=== PATIENT | female | born 1935 | race African-American/Black ===

== ENCOUNTER 2017-01-06 22:18 | Inpatient (IN) | payer MEDICARE ==
[2017-01-07 00:36] LABS: ALT (SGPT) 12 U/L (8-55); AST (SGOT) 18 U/L (5-34); Alkaline Phosphatase 70 U/L (40-150); Anion Gap 15 mmol/L (10-20); BUN (Urea Nitrogen) 25 mg/dL (9.8-20.1); Bilirubin, Total 0.5 mg/dL (0.2-1.2); Calc. Creatinine Clearance 0 mL/min (70-130); Calcium 9.9 mg/dL (7.8-10.44); Carbon Dioxide 19 mmol/L (23-31); Chloride 111 mmol/L (98-107); Estimated GFR-MDRD 31; Globulin 3.9 g/dL (2.4-3.5); Protein, Total 7.9 g/dL (6.0-8.3)
[2017-01-07 00:38] LABS: Hematocrit 35.5 % (36.0-47.0); Mean Platelet Volume 7.6 fL (7.4-10.4); Red Blood Cell (RBC) Count 3.89 mill/uL (4.20-5.40); White Blood Cell (WBC) Count 10.4 thou/uL (4.8-10.8)
[2017-01-07 00:39] LABS: Bilirubin Negative (Negative); Blood, Urine Large (Negative); Glucose, Urine (Dipstick) Negative (Negative); Ketone, Urine Negative (Negative); Nitrite Negative (Negative); Protein, Urine (Dipstick) 100 mg/dL (Neg-Trace); Urobilinogen 0.2 mg/dL (0.2-1.0)
[2017-01-07 00:39] LABS: Band 2 % (5-11); Neutrophil 88 % (42-75); Nucleated RBC 1 % (0)
[2017-01-07 00:41] LABS: Bacteria/HPF 1+ HPF (None Seen); Hyaline Casts/LPF 4-6 HYALINE CAST LPF (0-3 Hyaline)
[2017-01-07 00:44] LABS: Yeast-All Forms None Seen HPF (None Seen)
[2017-01-07] MEDS ORDERED: Sodium Chloride 0.9% 1,000 ML IV SCH (01:03)
[2017-01-07] MEDS ORDERED: Ondansetron HCl/PF 4 MG/2 ML Vial IVP PRN (01:03)
[2017-01-07] MEDS ORDERED: Ondansetron ODT 4 MG TAB SL PRN (01:03)
[2017-01-07 02:24] VITALS: BMI 28.4
[2017-01-07 06:08] LABS: Prothrombin Time 13.6 SEC (12.0-14.7)
[2017-01-07 06:13] LABS: PTT 28.7 SEC (22.9-36.1)
[2017-01-07] MEDS: cloNIDine 0.3 MG TAB PO SCH ×2 (10:31→20:13)
[2017-01-07] MEDS: Amlodipine 10 MG TAB PO SCH (10:32)
[2017-01-07] MEDS: Sodium Chloride 0.9% 1,000 ML IV SCH ×2 (10:33→20:13)
--- NOTE | 2017-01-08 00:10 | CON ---
DATE OF CONSULTATION: 01/07/2017 CHIEF COMPLAINT: Blood in the stool. HISTORY OF PRESENT ILLNESS: Ms. Alfred is an 81-year-old woman who came to the emergency room last night after having multiple red bloody stools. She passed two small volume bowel movements with br own stool mixed with red blood last night prior to coming to the hospital. Since she has been in [facility], she has passed multiple episodes of small volume of dark red bloody stools, mostly on [facility] toilet tissue and some passing into the toilet. She has had no abdominal pain with this. No naus ea, vomiting, diarrhea, constipation. She has had no weight loss. She has been taking aspirin two tablets 325 mg each daily most days recently. She has had no chest pain or shortness of breath. PAST MEDICAL HISTORY: She had mild GI bleed in November 2015, at which point she underwent colonos copy that identified diverticulosis and radiation proctitis. The bleeding was mild and could have o ccurred from either of these two sites. She also has hypertension and hyperlipidemia, past history of cervical cancer treated with chemotherapy and radiation. PAST SURGICAL HISTORY: Right ureteral stent placement and colonoscopy last year. FAMILY HISTORY: Negative for GI malignancy. SOCIAL HISTORY: No alcohol, tobacco or drugs. ALLERGIES: No known drug allergies. MEDICATIONS: As an outpatient, clonidine, amlodipine, and she has been taking aspirin 325 mg 2 tabl ets most days. REVIEW OF SYSTEMS: Negative x10 systems reviewed except as stated in the history of present illness . PHYSICAL EXAMINATION: VITAL SIGNS: Temperature 99.2, pulse 78, blood pressure 153/82. GENERAL: She is in no acute distress. She is awake and alert. HEENT: Her eyes have no scleral icterus. Oropharynx is clear, without lesions. NECK: No cervical or supraclavicular lymphadenopathy. LUNGS: Clear to auscultation bilaterally. HEART: Regular rate and rhythm without murmur. ABDOMEN: Soft, nontender, nondistended. Bowel sounds are present. EXTREMITIES: No lower extremity edema. RECTAL: Reveals dark red blood in the rectal vault. LABORATORY DATA: Her hemoglobin is 11.9 at midnight last night. INR 1.0. Creatinine 1.9, bilirubi n 0.5, AST 18, ALT 12, alkaline phosphatase 70, albumin 4.0. IMPRESSION: 1. Gastrointestinal bleed with dark red blood from the rectum. This does not appear to be a large volume bleed; however, she has had multiple stools today. This is most likely due to the diverticul osis or radiation proctitis identified by colonoscopy last year. Colonoscopy will not change manage ment at this time. Primary intervention now is just to withhold aspirin and allow that to metaboliz e. She has been taking two tablets of the 325 mg aspirin most days. 2. Anemia of acute blood loss. Her hemoglobin was 11.9 at midnight last night. We will recheck ag ain in the morning. RECOMMENDATIONS: 1. If her hemoglobin has not dropped down significantly and she does not have worsening overt bleed ing tomorrow, then advance her diet. 2. Hold aspirin. If she needs to be restarted on aspirin in the future she could potentially start 81 mg once daily.
[2017-01-08 05:11] LABS: #Eosinphils 0.3 thou/uL (0.0-0.7); #Lymphocytes 2.1 thou/uL (1.20-3.40); #Monocytes 0.4 thou/uL (0.11-0.59); #Neutrophils 2.5 thou/uL (1.40-6.50); %Basophils 0.7 % (0.0-1.0); %Eosinophils 5.1 % (0.0-10.0); %Lymphocytes 39.4 % (21.0-51.0); %Monocytes 7.6 % (0.0-10.0); Hematocrit 30.6 % (36.0-47.0); Mean Platelet Volume 7.7 fL (7.4-10.4); Red Blood Cell (RBC) Count 3.34 mill/uL (4.20-5.40); White Blood Cell (WBC) Count 5.3 thou/uL (4.8-10.8)
[2017-01-08 05:19] LABS: Anion Gap 13 mmol/L (10-20); BUN (Urea Nitrogen) 18 mg/dL (9.8-20.1); Calc. Creatinine Clearance 33 mL/min (70-130); Calcium 8.8 mg/dL (7.8-10.44); Carbon Dioxide 17 mmol/L (23-31); Chloride 115 mmol/L (98-107); Estimated GFR-MDRD 39
--- NOTE | 2017-01-08 06:36 | HP ---
REASON FOR ADMISSION/CHIEF COMPLAINT: Acute rectal bleeding. HISTORY OF PRESENT ILLNESS: Ms. Jenise Alfred is an 81-year-old -[place] female with past m edical history of hypertension, anemia, radiation proctitis, and colon diverticulosis, who came with sudden onset of rectal bleeding that started yesterday. The patient blood from the rectum, s ometimes more, sometimes less, had few episodes. She states she has been doing well until yesterday when this started. She did not have any abdominal pain. No nausea or vomiting. No dizziness. Th e patient came to the emergency room because of this onset of GI bleeding. In the ER, the patient w as evaluated. She was hemodynamically stable on H\T\H and her hemoglobin was 11.5. She was started on fluids and admitted for further evaluation and management. PAST MEDICAL HISTORY: 1. Hypertension. 2. History of cervical cancer, status post chemo and radiation. 3. History of radiation proctitis. 4. History of colon diverticulosis. PAST SURGICAL HISTORY: Nothing significant. CURRENT MEDICATIONS: The patient is on amlodipine 10 mg daily and clonidine 0.3 b.i.d. FAMILY HISTORY: Nothing of interest. SOCIAL HISTORY: The patient lives alone. No history of smoking. No history of alcohol intake. REVIEW OF SYSTEMS: Cardiovascular: No chest pain. No shortness of breath. Respiratory: No fever or cough. Gastrointestinal: Has rectal bleeding. No abdominal pain. Genitourinary: No dysuria or hematuria. Central Nervous System: No headache, no dizziness. PHYSICAL EXAMINATION: GENERAL: The patient is alert, awake, oriented x3. VITAL SIGNS: Temperature 98, pulse 112, blood pressure 160/106, respirations 20. HEENT: Head is normocephalic, atraumatic. Pupils are equal and reactive to light. Nasopharynx is pale and dry. Hard and soft palate, no lesions seen. SKIN: Skin turgor decreased. NECK: Supple. No JVD. LUNGS: Bilateral air entry present, no rales, no rhonchi. CARDIAC: S1, S2 regular. ABDOMEN: Soft, no distention, no tenderness. Normal bowel sounds present. RECTAL: Done in the ER revealed blood in the rectum. No hemorrhoids. CENTRAL NERVOUS SYSTEM: No focal deficits. LABORATORY DATA: CBC shows WBC 10.5, hemoglobin 11.9, hematocrit 35, platelets 281. Metabolic pane l: Sodium 141, potassium 3.6, chloride 111, CO2 of 19, BUN 25, creatinine 1.90, glucose 110. Urina lysis revealed wbc's 7-10, bacteria 1+. PT 13 and INR 1. ASSESSMENT: 1. Acute rectal bleeding. 2. Anemia secondary to acute rectal bleeding. 3. Hypertension, uncontrolled. 4. History of radiation proctitis. 5. History of colon diverticulosis. 6. History of carcinoma of cervix, status post chemo and radiation. 7. Possible urinary tract infection. PLAN: 1. Vital signs q.4 hours. 2. Activity: As tolerated. 3. Allergies: No known drug allergies. 4. IV fluids: Normal saline at 70 mL per hour. 5. Diet: Clear liquids. 6. Continue home medications. 7. H\T\H and metabolic panel in the morning. 8. GI consult. 9. Levaquin 500 mg daily.
[2017-01-08] MEDS: Sodium Chloride 0.9% 1,000 ML IV SCH (08:49)
[2017-01-08] MEDS: Amlodipine 10 MG TAB PO SCH ×2 (09:27→17:56)
[2017-01-08] MEDS: cloNIDine 0.3 MG TAB PO SCH ×3 (09:27→21:27)
--- NOTE | 2017-01-08 13:09 | PRG ---
DATE OF SERVICE: 01/08/2017 SUBJECTIVE: She has had no further bloody stools today. She is tolerating liquid diet well. OBJECTIVE: VITAL SIGNS: Temperature 98.3, pulse 85, blood pressure 134/80. GENERAL: She is in no acute distress, awake and alert. LUNGS: Clear to auscultation bilaterally. HEART: Regular rate and rhythm. ABDOMEN: Soft, nontender, nondistended. Bowel sounds are present. EXTREMITIES: No lower extremity edema. LABORATORY DATA: Hemoglobin is 10.0 today down from 11.9 on presentation. IMPRESSION: Hematochezia. She has had no further bleeding today. Her hemoglobin is down slightly. She has a history of radiation proctitis and diverticulosis. She had started taking aspirin 325 m g tablets 2 tablets daily, which may have contributed to the bleeding. RECOMMENDATIONS: 1. Hold the aspirin. If she needs to be on it, she can be restarted on an 81 mg dose. 2. Advance to a regular diet. 3. Anticipate discharge home tomorrow. I will sign off for now. Please call if GI can be of assistance.
[2017-01-09 05:05] LABS: #Basophils 0.1 thou/uL (0.0-0.2); #Eosinphils 0.3 thou/uL (0.0-0.7); #Lymphocytes 1.7 thou/uL (1.20-3.40); #Monocytes 0.4 thou/uL (0.11-0.59); #Neutrophils 2.4 thou/uL (1.40-6.50); %Basophils 1.2 % (0.0-1.0); %Eosinophils 6.2 % (0.0-10.0); %Lymphocytes 35.2 % (21.0-51.0); %Monocytes 7.4 % (0.0-10.0); Hematocrit 29.1 % (36.0-47.0); Mean Platelet Volume 7.5 fL (7.4-10.4); White Blood Cell (WBC) Count 4.7 thou/uL (4.8-10.8)
[2017-01-09 05:24] LABS: Anion Gap 12 mmol/L (10-20); BUN (Urea Nitrogen) 14 mg/dL (9.8-20.1); Calc. Creatinine Clearance 32 mL/min (70-130); Calcium 8.8 mg/dL (7.8-10.44); Carbon Dioxide 19 mmol/L (23-31); Chloride 114 mmol/L (98-107); Estimated GFR-MDRD 37
[2017-01-09] MEDS: cloNIDine 0.3 MG TAB PO SCH ×2 (08:00→20:32)
[2017-01-09] MEDS: Amlodipine 10 MG TAB PO SCH ×2 (08:01→18:09)
[2017-01-09] MEDS: Potassium Chloride 20 MEQ TAB PO SCH ×2 (18:23→18:29)
[2017-01-10 09:03] LABS: Hematocrit 32.5 % (36.0-47.0)
[2017-01-10] MEDS: cloNIDine 0.3 MG TAB PO SCH (09:06)
[2017-01-10] MEDS: Amlodipine 10 MG TAB PO SCH (09:06)
[2017-01-10 12:19] VITALS: BP 125/79; TEMP 98.2
--- NOTE | 2017-01-11 06:17 | DIS ---
DATE OF ADMISSION: 01/07/2017 DATE OF DISCHARGE: 01/10/2017 ADMITTING DIAGNOSES: 1. Acute rectal bleeding. 2. Anemia secondary to acute rectal bleeding. 3. Hypertension, uncontrolled. 4. History of radiation proctitis. 5. History of colon diverticulosis. 6. History of cervical carcinoma, status post chemo and radiation. FINAL DIAGNOSES: 1. Acute rectal bleeding, resolved. 2. Anemia secondary to rectal bleeding, stable. 3. Hypertension, uncontrolled, improved. 4. History of radiation proctitis. 5. History of colon diverticulosis. BRIEF SUMMARY OF HOSPITAL COURSE: Ms. Alfred is an 81-year-old -[place] female, admitted b ecause of acute onset of rectal bleeding. The patient had one episode at the house and also in the hospital, but her H\T\H remained stable. A GI consult was done. The patient was seen by Dr. Liu, he felt to have gastrointestinal bleeding, possibly and due to diverticulosis of colon. No radiati on proctitis. Since her hemoglobin is stable, she did not have any overt bleeding. He suggested to monitor, so her H\T\H was rechecked and her diet was slowly advanced. She did not have any more ep isodes of GI bleeding. Her hemoglobin stayed around 10 grams. The patient did not have any pain, s he tolerated diet very well. Her blood pressure was uncontrolled, but after given all her medicatio ns, patient's blood pressure improved. In view of improvement, the patient was discharged. PHYSICAL EXAMINATION: GENERAL: At the time of discharge, she was stable. VITAL SIGNS: Her vital signs were stable. LUNGS: Clear. HEART: Sounds regular. ABDOMEN: Soft, nontender. Bowel sounds present. DISCHARGE MEDICATIONS: Include clonidine 0.3 b.i.d., amlodipine 10 mg daily, aspirin 81 mg daily. FOLLOWUP: The patient will come for followup in 2 weeks.
== END 2017-01-10 12:39 | disposition home or self-care (01) | DRG 378 ==
LOC: ERS 22:18 → T4-A 01-07 00:02
PROVIDERS: ADMIT Internal Medicine; ATTEND Internal Medicine
DX: K57.91 Diverticulosis of intestine, part unspecified, without perforation or abscess with bleeding (principal); D62 Acute posthemorrhagic anemia; I10 Essential (primary) hypertension; E78.5 Hyperlipidemia, unspecified; Z85.41 Personal history of malignant neoplasm of cervix uteri
CPT/HCPCS: 36415; 80048; 80053; 81003; 81015; 82274; 85025; 85610; 85730; 86850; 86900; 86901; 99284; A4216

== ENCOUNTER 2019-09-25 10:34 | Inpatient (IN) | payer MEDICARE ==
--- NOTE | 2019-09-25 11:46 | RAD ---
XR Foot Rt 2 View INDICATION: 84-year-old female with right foot infection COMPARISON: None. FINDINGS: Bones: The toes are held in hyperextension at the MTP joints on the dorsal plantar projection limitin g the evaluation. No destructive osteolytic is seen to suggest radiographic evidence of osteomyelitis. Joints: Joints spaces appear preserved. Lisfranc alignment: Lisfranc alignment appears within normal limits. Soft tissues: There is severe soft tissue swelling of the distal right foreleg, ankle and right foot without Radiopaque foreign body demonstrated . IMPRESSION: No acute osseous abnormality.
--- NOTE | 2019-09-25 11:48 | RAD ---
EXAM: Chest one view: HISTORY: Right foot infection history of kidney cancer COMPARISON: 11/27/2005 FINDINGS: Right subclavian catheter injection port. Lumbothoracic dextroscoliosis. Heart size: Borderline enlarged. Lungs: Clear of acute process. No evidence for confluent pneumonia, pleural effusion, acute edema, or pneumothorax, or other signifi cant acute process. IMPRESSION: No significant acute intrathoracic disease.
[2019-09-25] MEDS ORDERED: Sodium Chloride 0.9% 100 ML ONE (12:06)
[2019-09-25] MEDS ORDERED: Cefepime 2 GM VIAL ONE (12:06)
[2019-09-25 12:14] LABS: #Lymphocytes 0.9 thou/uL (1.20-3.40); #Monocytes 0.4 thou/uL (0.11-0.59); #Neutrophils 9.2 thou/uL (1.40-6.50); %Basophils 0.1 % (0.0-1.0); %Eosinophils 0.1 % (0.0-10.0); %Lymphocytes 8.2 % (21.0-51.0); %Monocytes 3.4 % (0.0-10.0); %Neutrophils 88.1 % (42.0-75.0); Hemoglobin 7.8 g/dL (12.0-16.0); Mean Corpuscular Hemoglobin 30.8 pg (27.0-31.0); Mean Corpuscular Volume 93.3 fL (78.0-98.0); Mean Platelet Volume 7.7 fL (7.4-10.4); Platelet Count 314 thou/uL (130-400); RBC Distribution Width 12.6 % (11.5-14.5); Red Blood Cell (RBC) Count 2.52 mill/uL (4.20-5.40); White Blood Cell (WBC) Count 10.5 thou/uL (4.8-10.8)
[2019-09-25 12:35] LABS: ALT (SGPT) Less than 7 U/L (8-55); AST (SGOT) 17 U/L (5-34); Albumin 3.2 g/dL (3.4-4.8); Alkaline Phosphatase 77 U/L (40-110); Anion Gap 20 mmol/L (10-20); BUN (Urea Nitrogen) 52 mg/dL (9.8-20.1); Bilirubin, Total 0.5 mg/dL (0.2-1.2); Calc. Creatinine Clearance 0 mL/min (70-130); Calcium 6.3 mg/dL (7.8-10.44); Carbon Dioxide 16 mmol/L (23-31); Chloride 105 mmol/L (98-107); Estimated GFR-MDRD 10; Globulin 3.7 g/dL (2.4-3.5); Glucose 84 mg/dL (83-110); Protein, Total 6.9 g/dL (6.0-8.3); Sodium 139 mmol/L (136-145)
[2019-09-25 12:41] LABS: Potassium 2.2 mmol/L (3.5-5.1)
[2019-09-25] MEDS ORDERED: Vancomycin 1 GM/200 ML BAG ONE (12:46)
[2019-09-25 13:03] LABS: Bilirubin Negative (Negative); Blood, Urine Negative (Negative); Clarity Clear (Clear); Glucose, Urine (Dipstick) Normal (Negative); Ketone, Urine Negative (Negative); Leukocyte Negative Leu/uL (Negative); Nitrite Negative (Negative); Protein, Urine (Dipstick) 10 mg/dL (Neg-Trace); Specific Gravity, Urine 1.006 (1.002-1.036); Urobilinogen Normal mg/dL (Less than 2)
[2019-09-25] MEDS ORDERED: Acetaminophen 325 MG TAB PO PRN (15:52)
[2019-09-25] MEDS ORDERED: HYDROcodone/Acetaminophen 5/325 mg Tablet PO PRN ×2 (15:52)
[2019-09-25] MEDS ORDERED: Sodium Chloride 0.9% 1,000 ML IV SCH (17:30)
--- NOTE | 2019-09-25 17:44 | PDOC.HHP ---
Hospitalist HPI - History of Present Illness heel wound on right foot History of Present Illness: Patient is poor historian. H&P based on patient report and EMR. 84yo F w/ MHx of HTN and distant cervical cancer s/p chemo and radiation presents with right foot wound. Patient was at her baseline a week ago, walking without assistance, then she noticed developing wound on her right heel, not tender or draining, the kept growing in size so went to her PCP, who sent her to the ED on encounter, laying comfortably in bed and has no complaints. Endorses drinking only 2-3 cups of liquids daily. Denies foot trauma, tenderness, redness , drainage bleeding, fever, chills, night sweats, dysuria, urinary frequency, burninng on urination, hematuria. ED Course: In the ED, was given a single dose of vanc and cefepime. K found to be 2.2, so gave 40meq. She was admitted to telemetry for further management Hospitalist ROS - Review of Systems All other systems reviewed; all pertinent +/- noted in HPI/Subj Hospitalist History - Past Medical History Source: patient, old records Cardiac: reports: HTN. denies: CAD, CHF Pulmonary: reports: hypertension. denies: CVA/TIA/stroke, heart attack [employer]OR [employer] RECONDITIONING: denies: CVA, TIA Gastrointestinal: reports: Diverticulosis Heme/Onc: reports: Cancer (cervical cancer s/p chemo and radiation) - Past Surgical History Past Surgical History: reports: no pertinent history - Family History Family History: reports: no pertinent history - Social History Smoking Status: Never smoker Alcohol: reports: None Drugs: reports: none Living Situation: With Family Activity level: independent ambulation - Exam General Appearance: NAD, awake alert Eye: anicteric sclera ENT: normocephalic atraumatic, dry oral mucosa ENT - other findings: very dry oral mucosa Heart: RRR, no gallops, no rubs Heart - other findings: 2/6 right 2nd intercostal decrescendo systolic murmur Respiratory: CTAB, no wheezes, no rales, no ronchi Gastrointestinal: soft, non-tender, non-distended, normal bowel sounds Extremities: 2+ LE edema Extremities - other findings: b/l equal pitting edema Skin: tenting (dry lower extremity skin) Skin - other findings: right heel 4-5cm ulcer, overlying eschar, no surrounding warmth, erythema Psychiatric: normal affect, normal behavior, A&O x 3 Hospitalist Results - Labs Result Diagrams: 09/25/19 11:58 09/25/19 11:58 Lab results: WBC 10.5 thou/uL (4.8-10.8) 09/25/19 11:58 Hgb 7.8 g/dL (12.0-16.0) L 09/25/19 11:58 Hct 23.5 % (36.0-47.0) L 09/25/19 11:58 MCV 93.3 fL (78.0-98.0) 09/25/19 11:58 Plt Count 314 thou/uL (130-400) 09/25/19 11:58 Neutrophils % 88.1 % (42.0-75.0) H 09/25/19 11:58 ESR Westergren 47 mm/hr (Less than 30) 09/25/19 12:05 Sodium 139 mmol/L (136-145) 09/25/19 11:58 Potassium 2.2 mmol/L (3.5-5.1) L* 09/25/19 11:58 Chloride 105 mmol/L (98-107) 09/25/19 11:58 Carbon Dioxide 16 mmol/L (23-31) L 09/25/19 11:58 BUN 52 mg/dL (9.8-20.1) H 09/25/19 11:58 Creatinine 5.12 mg/dL (0.6-1.1) H 09/25/19 11:58 Glucose 84 mg/dL (83-110) 09/25/19 11:58 Lactic Acid 1.1 mmol/L (0.5-2.2) 09/25/19 11:58 Calcium 6.3 mg/dL (7.8-10.44) L 09/25/19 11:58 Total Bilirubin 0.5 mg/dL (0.2-1.2) 09/25/19 11:58 AST 17 U/L (5-34) 09/25/19 11:58 ALT Less than 7 U/L (8-55) L 09/25/19 11:58 Alkaline Phosphatase 77 U/L (40-110) 09/25/19 11:58 C-Reactive Protein 23.81 mg/dL (= or < 0.5) H 09/25/19 11:58 Serum Total Protein 6.9 g/dL (6.0-8.3) 09/25/19 11:58 Albumin 3.2 g/dL (3.4-4.8) L 09/25/19 11:58 Urine Ketones Negative mg/dL (Negative) 09/25/19 12:45 Urine Blood Negative (Negative) 09/25/19 12:45 Urine Nitrite Negative (Negative) 09/25/19 12:45 Ur Leukocyte Esterase Negative Bean/uL (Negative) 09/25/19 12:45 - EKG Interpretation EKG: barely noticeable t-waves. otherwise unremarkable - Radiology Interpretation Chest x-ray Status: image reviewed by me Additional Comment: no acute cardiopulmonary process. Other Status: report reviewed by me Additional Comment: foot x-ray shows right foot soft tissue swelling Hospitalist H&P A/P - Problem (1) Hypertension Code(s): I10 - ESSENTIAL (PRIMARY) HYPERTENSION Status: Acute (2) Nonhealing ulcer of heel Code(s): L97.409 - NON-PRS CHRONIC ULCER OF UNSP HEEL AND MIDFOOT W UNSP SEVERT Status: Acute (3) Acute kidney injury Code(s): N17.9 - ACUTE KIDNEY FAILURE, UNSPECIFIED Status: Acute (4) Hypokalemia Code(s): E87.6 - HYPOKALEMIA Status: Acute - Plan Plan: #MILTON/CKD no recent date to distinguish Cr/Bun>20; dry on exam; likely prerenal aspect #hypokalemia -EKG flattened T-wave -no associated symptoms -check and supplement electorlytes -IVF bolus; IVF maintenance; monitor urine output; -PVR/bladder scan; if no urine output reduce IVF rate -UA -nephrology consulted #chronic nonhealing ulcer -likely related to poor circulation -pedal and posterior tibial pulses not appreciated but significant edema -arterial doppler -surgery consulted for unroofing and debridment #HTN -continue home regimen Full code GI PPx: no Ix DVT PPx: lovenox
[2019-09-25 20:07] LABS: Bilirubin Negative (Negative); Blood, Urine Negative (Negative); Clarity Clear (Clear); Glucose, Urine (Dipstick) Normal (Negative); Ketone, Urine Negative (Negative); Leukocyte Negative Leu/uL (Negative); Nitrite Negative (Negative); Protein, Urine (Dipstick) Negative (Neg-Trace); RBC/HPF None Seen HPF (0-3); Specific Gravity, Urine 1.007 (1.002-1.036); Squamous Epithelial None Seen HPF (0-3); Urobilinogen Normal mg/dL (Less than 2); WBC/HPF 0-3 HPF (0-3)
[2019-09-25 20:13] LABS: Bacteria/HPF None Seen HPF (None Seen)
[2019-09-25 20:20] LABS: Potassium 3.2 mmol/L (3.5-5.1)
[2019-09-25 20:22] LABS: Magnesium 0.8 mg/dL (1.6-2.6)
[2019-09-25] MEDS ORDERED: Electrolyte Replacement Protoc 1 EACH EACH FS SCH (20:30)
[2019-09-25] MEDS: Sodium Chloride 0.9% 1,000 ML IV SCH (21:29)
[2019-09-25] MEDS: cloNIDine 0.2 MG TAB PO SCH (21:30)
[2019-09-25] MEDS ORDERED: Magnesium Sulfate 4 GM in Sodium Chloride 0.9% 250 ML 250 ML IVPB SCH (22:00)
[2019-09-25] MEDS ORDERED: Potassium Chloride 20 MEQ TAB PO SCH (23:00)
[2019-09-26] MEDS ORDERED: Vancomycin HCl 1.5 GM in Sodium Chloride 0.9% 250 ML 300 ML IVPB SCH (01:00)
[2019-09-26 05:02] LABS: #Eosinphils 0.1 thou/uL (0.0-0.7); #Lymphocytes 1.5 thou/uL (1.20-3.40); #Monocytes 0.3 thou/uL (0.11-0.59); #Neutrophils 6.5 thou/uL (1.40-6.50); %Eosinophils 0.6 % (0.0-10.0); %Lymphocytes 17.6 % (21.0-51.0); %Monocytes 4.1 % (0.0-10.0); %Neutrophils 77.7 % (42.0-75.0); Hemoglobin 7.5 g/dL (12.0-16.0); Mean Corpuscular HGB CONC 33.4 g/dL (32.0-36.0); Mean Corpuscular Hemoglobin 31.5 pg (27.0-31.0); Mean Corpuscular Volume 94.1 fL (78.0-98.0); Mean Platelet Volume 7.9 fL (7.4-10.4); Platelet Count 280 thou/uL (130-400); RBC Distribution Width 12.9 % (11.5-14.5); Red Blood Cell (RBC) Count 2.37 mill/uL (4.20-5.40); White Blood Cell (WBC) Count 8.4 thou/uL (4.8-10.8)
[2019-09-26 05:23] LABS: Anion Gap 19 mmol/L (10-20); BUN (Urea Nitrogen) 48 mg/dL (9.8-20.1); Calc. Creatinine Clearance 10 mL/min (70-130); Calcium 6.2 mg/dL (7.8-10.44); Carbon Dioxide 14 mmol/L (23-31); Chloride 110 mmol/L (98-107); Estimated GFR-MDRD 11; Glucose 77 mg/dL (83-110); Sodium 140 mmol/L (136-145)
[2019-09-26 05:27] LABS: Potassium 2.5 mmol/L (3.5-5.1)
[2019-09-26] MEDS: Sodium Chloride 0.9% 1,000 ML IV SCH (06:02)
[2019-09-26] MEDS ORDERED: Sodium Bicarbonate 150 MEQ in Dextrose 5% in Water 1,000 ML IV SCH ×2 (06:30→10:45)
--- NOTE | 2019-09-26 07:34 | ULT ---
BILATERAL LOWER EXTREMITY ARTERIAL DOPPLER ULTRASOUND: Date: 09/25/2019 HISTORY: Suspected peripheral vascular disease. TECHNIQUE: Multiplanar Gaines scale sonographic imaging of the arterial structures of bilateral lower extremities obtained with color flow and spectral analysis. FINDINGS: Right common femoral artery is patent with a bi-triphasic waveform. A bi-triphasic waveform is noted within the right superficial femoral artery proximally. There is a biphasic waveform within the mid a nd distal right SFA, as well as within the right popliteal artery, the right IN FLIGHT TECHNICIAN, the right CHUY, and the right DPA. Left common femoral artery is patent and demonstrates a biphasic waveform, as does the left profunda femoral artery. Proximal left SFA demonstrates a monophasic waveform, as does the mid and distal left SFA and the left popliteal artery. Left IN FLIGHT TECHNICIAN, CHUY, and DPA demonstrate a monophasic waveform. VESSEL PSV (cm/sec) RIGHT: SHEET METAL TECHNICIAN 85 SFA Proximal 86 SFA Mid 62 SFA Distal 61 Popliteal Artery 48 IN FLIGHT TECHNICIAN 117 CHUY 72 DPA 68 LEFT: SHEET METAL TECHNICIAN 51 SFA Proximal 52 SFA Mid 41 SFA Distal 46 Popliteal Artery 40 IN FLIGHT TECHNICIAN 60 CHUY 40 DPA 53 IMPRESSION: Patent arterial structures of bilateral lower extremities. Abnormal waveforms are noted, left greater than right. Velocities are relatively low on the left when compared to the right. Recommend CT angio gram of the abdomen and pelvis and bilateral lower extremities utilizing a CT runoff protocol to eval uate for underlying hemodynamically significant stenosis. POS: [facility]
[2019-09-26] MEDS: Amlodipine 10 MG TAB PO SCH (08:47)
[2019-09-26] MEDS: cloNIDine 0.2 MG TAB PO SCH ×2 (08:47→21:52)
[2019-09-26] MEDS: Enoxaparin Sodium 30 MG/0.3 ML SYRINGE SC SCH (09:43)
[2019-09-26] MEDS ORDERED: Ergocalciferol 1.25 MG(50,000 UNITS) CAP PO SCH (10:45)
[2019-09-26] MEDS ORDERED: Cefepime 1 GM in Sodium Chloride 0.9% 100 ML IVPB SCH (11:00)
[2019-09-26] MEDS: Albumin 25% 25 GM/100 ML BOT IVPB SCH ×3 (11:46→21:53)
--- NOTE | 2019-09-26 12:13 | ULT ---
ULTRASOUND RETROPERITONEUM COMPLETE: (RENAL) DATE: 09/26/2019 HISTORY: 84-year-old female with renal failure and anasarca FINDINGS: There is very severe dilation of right renal pelvis and all of the right renal calyces. The overlying renal parenchyma is thin. The left kidney is not visualized. This could be due to combination of obscuring by shadowing from ov erlying bowel gas, body habitus, and additional skin/soft tissue thickening of the left flank due to what appears to be edema or anasarca. Prevoid urinary bladder volume is 400 mL. Bladder wall thickness is within normal limits. Questionable small amount of free fluid around the bladder. IMPRESSION: 1) very severe, maximal right hydronephrosis. 2.) Unable to visualize left kidney. 3) recommend CT abdomen and pelvis, beginning with noncontrast CT.
[2019-09-26 13:43] LABS: Anion Gap 20 mmol/L (10-20); BUN (Urea Nitrogen) 48 mg/dL (9.8-20.1); Calc. Creatinine Clearance 10 mL/min (70-130); Calcium 6.4 mg/dL (7.8-10.44); Carbon Dioxide 14 mmol/L (23-31); Chloride 111 mmol/L (98-107); Estimated GFR-MDRD 11; Glucose 104 mg/dL (83-110); Potassium 3.2 mmol/L (3.5-5.1); Sodium 142 mmol/L (136-145)
[2019-09-26 15:02] LABS: Potassium, Urine Less than 10.0 mmol/L; Protein, Urine Random Quant Less than 10 mg/dL (1-14); Sodium, Urine 58 mmol/L (Not Available)
--- NOTE | 2019-09-26 16:01 | CON ---
DATE OF CONSULTATION: REASON FOR CONSULTATION: Right heel wound. HISTORY: The patient is an 84-year-old woman, who came to the hospital because of right heel pain. She states that she has had a sore in that area for the past 4 to 5 days. She does not know what caused the sore. She thinks that she might have had a small wound on the heel and then wore shoes that were too tight. She has not had any fevers or chills and denies any other previous history of sores on her legs. She denies being bedridden. She states that she ambulates in her home with use of a cane, but does not get out of the house much. She denies any claudication, but is minimally ambulatory. She denies any rest pain. She denies any history of renal problems. She was seeing Dr. Polk until he moves about a month ago, and states that her last checkup with him was okay. She does not remember if he had drawn any labs on her recently however. PAST MEDICAL HISTORY: Hypertension and cervical cancer. PAST SURGICAL HISTORY: MediPort placement, , hysterectomy, and appendectomy. No vascular procedures or catheterizations. SOCIAL HISTORY: She does not smoke or drink. She lives at home with her son, who helps care for her. MEDICATIONS AND ALLERGIES: She does not know her medications, but denies any allergies. REVIEW OF SYSTEMS: Ten system review of systems is negative except per HPI. PHYSICAL EXAMINATION: VITAL SIGNS: The patient is afebrile. Blood pressure is normal. GENERAL: Reveals a pleasant elderly woman, in no acute distress. She is not flushed or toxic in appearance. HEENT: Unremarkable. NECK: Supple without lymphadenopathy or thyroid nodules. HEART: Regular in its rate and rhythm without murmurs, rubs, or gallops. LUNGS: Clear to auscultation bilaterally. ABDOMEN: Soft, nontender, and nondistended. EXTREMITIES: Warm and pink with normal capillary refill. She has normal femoral pulses bilaterally and normal popliteal pulse on the right. I do not appreciate a popliteal pulse on the left and I cannot feel pedal pulses on either side. She did have ankle-brachial index performed on both legs, which was normal or greater than 1, but her toe pressures were quite low on the right side at 30, on the left side these were 72, although her Doppler signals for her arteries on her left were worse than on the right. She has a large eschar on her right heel with some slightly cloudy, foul smelling drainage, and the skin is starting to peel back from this area, revealing tissue underneath. She does have grossly normal palpation and light touch of her feet, and no focal neurologic deficit, although she is diffusely weak. She has mild to moderate pitting edema of both legs. LABORATORY DATA: White count is normal at 8.4, hematocrit is low at 22.3, and BUN and creatinine are both quite elevated. Her last renal function lab testing at our facility was in 2017 and it was only mildly elevated at that time. 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 The distribution of the wound is most consistent with a pressure necrosis injury from lying in bed, it involves the posterior heel more than the plantar surface, although it does involve both areas. I recommended debridement of the necrotic tissue and culture of the underlying tissue. She has antibiotics ordered by her Medicine Team, which should be adapted to the culture results. She will require wet-to-dry dressings to further mechanically debride the area and may require further surgical debridement over the next few days. Since she is still ambulatory, we will attempt to get this wound to heal with dressing changes and eventual VAC dressing placement. However, her vascular supply is somewhat tenuous and due to her newly diagnosed renal failure, angiogram and catheterization carry significant risk of taking her over into needing dialysis. If she does end up going on dialysis, I would recommend Vascular Surgery consultation. However, it appears that she has mostly small vessel disease and the amount of intervention that they would be able to do would likely be limited. She is aware that her odds of healing this wound successfully are low, but she does not wish to undergo amputation. I will continue to follow her with the Wound Care Team. Job ID: [id number]
[2019-09-27] MEDS: Albumin 25% 25 GM/100 ML BOT IVPB SCH (01:47)
--- NOTE | 2019-09-27 07:36 | CON ---
DATE OF CONSULTATION: 09/26/2019 SERVICE: Nephrology. REASON FOR CONSULTATION: Renal failure. REQUESTING PHYSICIAN: Dr. Zapata. HISTORY OF PRESENT ILLNESS: This is an 84-year-old female with known history of CKD; hypertension; cervical cancer, status post chemoradiation, complicated with radiation proctitis and previous GI bleed; admitted with worsening right foot wound on the heel area. The patient reportedly noticed the wound on her right heel, which progressively got worse, hence a visit to the PCP, from where she was referred to the ED and was subsequently admitted. On presentation to the ER, the patient was found to have elevated creatinine and low potassium and was subsequently admitted to the hospital, and Nephrology was consulted. The patient reported some swelling of lower extremities, but otherwise denied chest pain, leg pain, nausea, vomiting, drainage from the wound, fever, chills, night sweats, dysuria, hematuria, hematemesis, hematochezia, or melena. The patient was treated with potassium supplementation and also started on IV fluids, given elevated creatinine. Of note, in 2017, the patient had creatinine ranging from 1.6 to 1.9. PAST MEDICAL HISTORY: 1. Hypertension. 2. Colonic diverticulosis. 3. Cervical cancer, status post chemoradiation, complicated by radiation proctitis and GI bleeding. 4. CKD stage 3. Of note, the patient is not a known diabetic and denied heart problems. PAST SURGICAL HISTORY: Upper endoscopy and lower endoscopy. FAMILY HISTORY: Reviewed, but noncontributory. No family history of cancer or premature coronary artery disease. SOCIAL HISTORY: The patient lives with son, who helps her with ADLs. She is a never smoker. She was ambulating however independently prior to development of a heel ulcer. ALLERGIES: NO KNOWN DRUG ALLERGIES REPORTED. HOME MEDICATIONS: 1. Amlodipine 10 mg p.o. daily. 2. Clonidine 0.2 mg p.o. b.i.d. REVIEW OF SYSTEMS: 12-point review of system performed was negative other than pertinent positives and negatives included in the history of present illness. CURRENT HOSPITAL MEDICATIONS: 1. Normal saline at mL/hr. 2. Amlodipine 10 mg p.o. daily. 3. Clonidine 0.2 mg p.o. b.i.d. 4. Lovenox 30 mg subcutaneously daily. 5. Potassium chloride 40 mEq p.o. q.4 hours x2 doses. 6. Acetaminophen and Hydrocodone Acetaminophen p.r.n. for pain. PHYSICAL EXAMINATION: VITAL SIGNS: Temperature 97.6, pulse 67, respiratory rate 20, SpO2 of 99% on room air, blood pressure is 114/61. GENERAL: Elderly female, in no obvious distress. Afebrile, acyanotic. Conjunctivae, pallor noted. HEENT: Normocephalic, atraumatic. Oral mucosa is moist. NECK: Supple with no obvious JVD. CARDIOVASCULAR: Regular rhythm and rate with soft systolic murmur. RESPIRATORY: Fair air entry bilaterally with no obvious crackle or rhonchi or use of accessory muscles. GI: Full, soft, nontender, nondistended with normal bowel sounds. EXTREMITIES: [id number] edema of both lower extremities extending to the thigh noted. Heel area; right heel wound with black discoloration, but no drainage noted. No obvious erythema appreciated. Concerning for wet gangrene. ORE BUYER: Conscious, alert, oriented x3 with appropriate mental status. Cranial nerves 2 through 12 are grossly intact. DIAGNOSTIC DATA: CBC today showed WBC count of 8.4, hemoglobin of 7.5, MCV of 94.1, platelets of 280. Chemistry today showed sodium 140, potassium 2.5, chloride 110, CO2 of 14, BUN 48, creatinine 4.73, glucose 73, calcium 6.2. On presentation yesterday, the patient had the following chemistry; sodium 139, potassium 2.2, chloride 105, CO2 of 16, BUN 52, creatinine 5.12, glucose 84, calcium , total bilirubin 0.5, AST 17, ALT 7, alkaline phosphatase 77, total protein 6.9, albumin 3.2. C-reactive protein is elevated at 23.8. Magnesium yesterday was 0.8. Lactic acid yesterday was 1.1. ASSESSMENT: 1. Renal failure: Chemistry in 2017 showed creatinine ranging from 1.6 to 1.9. There are no other recent labs to compare. This is most likely acute on chronic. However, progression of chronic kidney disease to this point cannot be ruled out. With IV fluids, creatinine is down from 5.12 on presentation to 4.73. Urinalysis obtained on presentation was unremarkable. 2. Metabolic acidosis: Most likely due to renal failure. Right heel wound infection may be contributory. 3. Severe hypokalemia: Most likely due to poor oral intake. The patient is not on any diuretic. Contribution from hypomagnesemia is noted as the patient had severe hypomagnesemia of 0.8. 4. Hypomagnesemia. 5. Hypocalcemia: Concerning for vitamin D deficiency. 6. Bilateral leg edema: Etiology is unclear. Diastolic heart failure as well as venous incompetence seems likely. Deep vein thrombosis is another differential. 7. Right heel necrotic wound. Etiology is unclear. The patient is not a known diabetic. 8. Hypertension: Controlled. Blood pressure actually is tending toward the soft side. PLAN: 1. We will expand the intravascular space with albumin and crystalloid. 2. We will also substitute normal saline with sodium bicarbonate. 3. We will replete serum potassium as well as magnesium. 4. We will get urine electrolytes as well as renal ultrasound and PTH and vitamin D. 5. We will also get iron chemistry due to severe anemia. 6. Further treatment as per primary attending and other specialties. Many thanks for involving us in the care of this patient. We will follow along with you. Job ID: [id number]
[2019-09-27 07:40] LABS: Albumin 3.4 g/dL (3.4-4.8); Anion Gap 16 mmol/L (10-20); BUN (Urea Nitrogen) 44 mg/dL (9.8-20.1); Calc. Creatinine Clearance 10 mL/min (70-130); Calcium 6.6 mg/dL (7.8-10.44); Carbon Dioxide 19 mmol/L (23-31); Chloride 109 mmol/L (98-107); Estimated GFR-MDRD 11; Glucose 94 mg/dL (83-110); Iron 21 ug/dL (50-170); Iron Binding Capacity, Total 104 mcg/dL (265-497); Phosphorus 3.9 mg/dL (2.3-4.7); Sodium 141 mmol/L (136-145)
[2019-09-27 07:48] LABS: Potassium 2.9 mmol/L (3.5-5.1)
[2019-09-27] MEDS ORDERED: Potassium Chloride 20 MEQ TAB PO SCH (08:00)
[2019-09-27] MEDS ORDERED: Calcium Carbonate 600 MG + Vit D TAB PO SCH (08:00)
[2019-09-27] MEDS ORDERED: Magnesium 2 GM/50 ML 2 GM in Premix Bag 1 BAG IVPB SCH (08:45)
[2019-09-27] MEDS ORDERED: Magnesium Sulfate 2 GM in Sodium Chloride 0.9% 100 ML IVPB SCH (08:45)
--- NOTE | 2019-09-27 08:51 | PDOC.GSPN ---
Surgery Progress Note: Subj - Subjective Narrative: Wound still with some questionable tissue viability peripherally but less odor and tenderness compared to yesterday. Will see w WCT tomorrow and possibly debride further. Gram stain shows mixed GPC and gram negatives. Cefipime and Vanc DC'd for unclear reasons- will clarify abx regimen w hospitalist. She needs broad coverage and we should assume that she has occult osteomyelitis of heel given extensive necrotic infected tissue overlying the bone. Surgery Progress Note: Obj - Vital signs Vital signs: Vital Signs - Most Recent Temp Pulse Resp BP Pulse Ox 98.7 F 64 16 116/56 L 100 09/27/19 07:50 09/27/19 07:50 09/27/19 07:50 09/27/19 07:50 09/27/19 07:50 Surgery Progress Note: Results - Labs Result Diagrams: 09/26/19 04:38 09/27/19 06:51 Lab results: Laboratory Results - last 24 hr 09/27/19 09/27/19 06:51 06:51 Sodium 141 Potassium 2.9 L* Chloride 109 H Carbon Dioxide 19 L Anion Gap 16 BUN 44 H Creatinine 4.49 H Estimated GFR (MDRD) 11 BUN/Creatinine Ratio 9.80 Glucose 94 Calcium 6.6 L Phosphorus 3.9 Magnesium 1.4 L Iron 21 L TIBC 104 L % Saturation 20 Albumin 3.4
[2019-09-27] MEDS ORDERED: Vancomycin 1 GM in Premix Bag 1 BAG IVPB SCH ×2 (09:15→09:30)
[2019-09-27] MEDS: Amlodipine 10 MG TAB PO SCH (09:23)
[2019-09-27] MEDS: Enoxaparin Sodium 30 MG/0.3 ML SYRINGE SC SCH (09:23)
[2019-09-27] MEDS: Cefepime 1 GM in Sodium Chloride 0.9% 100 ML IVPB SCH (09:29)
[2019-09-27] MEDS ORDERED: Vancomycin HCl 250 MG in Sodium Chloride 0.9% 100 ML IVPB SCH (09:30)
[2019-09-27] MEDS ORDERED: Vancomycin HCl 500 MG in Sodium Chloride 0.9% 100 ML IVPB SCH (09:30)
[2019-09-27] MEDS ORDERED: Vancomycin 1.5 GRAM/300 ML BAG 1.5 GM in Premix Bag 1 BAG IVPB SCH (09:30)
[2019-09-27] MEDS ORDERED: Vancomycin HCl 750 MG in Sodium Chloride 0.9% 250 ML 250 ML IVPB SCH (09:30)
[2019-09-27] MEDS ORDERED: HOLD VANCOMYCIN FOR LEVEL >20 FS SCH (09:30)
[2019-09-27] MEDS ORDERED: Vancomycin Sliding Scale 1 EACH FS SCH (09:45)
[2019-09-27] MEDS ORDERED: Albumin 25% 25 GM/100 ML BOT IVPB SCH (10:00)
--- NOTE | 2019-09-27 11:00 | CT ---
CT ABDOMEN NONCONTRAST CT PELVIS NONCONTRAST: (Urolithiasis protocol) DATE: 09/27/2019 HISTORY: 84-year-old female with renal failure and anasarca. Abnormal renal ultrasound. COMPARISON: 09/26/2005 TECHNIQUE: IV injection of iodinated contrast media: None Oral contrast media: None FINDINGS: Other than for urolithiasis, the lack of IV and oral contrast limits the evaluation. In 2005 there was severe right hydroureteronephrosis. Now, the right kidney has become atrophic. There continues to be severe right hydronephrosis, but the volume of dilated right renal collecting s ystem has decreased compared to the prior, following the right renal atrophy. There is a new finding of very severe dilation of the left renal collecting system. Because of interval decrease in the volume of visceral fat since the prior CT, and because of lack of IV and oral contrast, and because of what appears to be edema throughout the intraperitoneal and retroperitoneal fat, it is very difficult to follow and identify the ureters, and difficult to distin guish any potentially dilated ureter from the multiple fluid-filled dilated small bowel loops in the mid and lower abdominal cavity and pelvic cavity, new since prior CT. There is new severe anasarca. Tiny new left pleural effusion. Incomplete partial visualization of pulmonary density in lingula abutting major fissure. Nonspecific groundglass changes at base of left lower lobe. There are 2 pulmonary nodules at the anterior portion of the right middle lobe. The larger one is more laterally located and measures approximately 0.6 x 0.4 cm. No pneumoperitoneum. New finding of an approximately 5.5 x 5 x 6 cm solid mass containing innumerable tiny calcifications and innumerable small focal hypodensities which may represent cystic components, in the deep aspect of the abdominal cavity, just to the left of, and anterior to, the mid lumbar spine. Slightly inferio r to that, near midline, abutting the anterior portion of the mid and lower lumbar spine, there is another, approximately 7.5 x 4.5 x 5.5 cm mass. This lower mass is flanked by to moderately large low attenuation masses that encroach upon the bilat eral psoas muscles. Located slightly lateral and inferior to the first described mass, there is another approximately 4.5 x 4 x 3 cm mass. The previously described 7.5 cm mass in the lower uterine segment is no longer present. However, in i ts place, there is an approximately 7.5 x 2 cm structure containing numerous coarse calcifications, which may or may not represent vaginal cuff. No abdominal aortic aneurysm. Extensive colonic diverticulosis. In possible to evaluate for diverticulitis in the current setting. Small amount of free fluid in the dependent portion of the pelvic cavity. No hepatosplenomegaly. Pancreas poorly visualized. No large adrenal mass. Sauceda catheter in nearly empty urinary bladder. Diffuse mural thickening of urinary bladder. IMPRESSION: 1) severe bilateral hydronephrosis, left worse than right, representing obstructive uropathy. 2) interval atrophy of the right kidney. 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 These are probably the cause of the obstructive uropathy. 4) severe anasarca. 5) mild edema 6) multiple fluid-filled dilated small bowel loops in mid and lower abdominal cavity. This could repr esent ileus or partial small bowel obstruction. 7) 6 mm right middle lobe pulmonary nodule.
--- NOTE | 2019-09-27 12:50 | PDOC.HOSPP ---
- Subjective Encounter Date: 09/27/19 Encounter Time: 14:00 Subjective: Patient seen and examined for multiple issues. No new complaints. No overnight events - Objective Vital Signs & Weight: Vital Signs (12 hours) Temp Pulse Resp BP Pulse Ox 09/27/19 11:00 98.1 F 84 16 125/81 99 09/27/19 07:50 98.7 F 64 16 116/56 L 100 09/27/19 03:55 97.6 F 67 18 113/61 96 09/27/19 01:15 97.3 F L 65 17 114/58 L 100 Weight Admit Weight 152 lb Weight 154 lb I&O: 09/26/19 09/27/19 09/28/19 06:59 06:59 06:59 Intake Total 2750 2720 Output Total 600 2350 Balance 2150 370 Result Diagrams: 09/28/19 04:30 09/28/19 04:30 Additional Labs: Microbiology 09/26/19 11:50 Heel - Wound Bacterial Culture - Preliminary Gram Negative Andrés 09/25/19 12:05 Venous blood - Left Arm Blood Culture - Preliminary Specimen has been received and culture in progress. No Growth to date. 09/25/19 11:59 Venous blood - Right Arm Blood Culture - Preliminary Specimen has been received and culture in progress. No Growth to date. Laboratory Tests 09/26/19 09/26/19 09/27/19 04:38 08:57 06:51 Hgb 7.5 L Magnesium 1.4 L Ferritin 25-OH Vitamin D Total 13.4 L 09/27/19 11:21 Hgb Magnesium Ferritin 307.49 H 25-OH Vitamin D Total Radiology Reviewed by me: Yes (CT abd - obstructive uropathy) Hospitalist ROS - Review of Systems Respiratory: denies: cough, dry, shortness of breath, hemoptysis, SOB with excertion, pleuritic pain, sputum, wheezing, other Cardiovascular: denies: chest pain, palpitations, orthopnea, paroxysmal noc. dyspnea, edema, light headedness, other - Medication Medications: Active Medications Generic Name Dose Route Start Last Admin Trade Name Freq PRN Reason Stop Dose Admin Amlodipine Besylate 10 mg 09/26/19 09:00 09/27/19 09:23 Norvasc PO 10 mg DAILY GEN Administration Calcium/Vitamin D 1 tab 09/27/19 08:00 09/27/19 09:22 Caltrate 600 + Vit D PO 1 tab QAM-WM GEN Administration Enoxaparin Sodium 30 mg 09/26/19 09:00 09/27/19 09:23 Lovenox SC 30 mg 0900 GEN Administration Cefepime HCl 1 gm/ Sodium 100 mls @ 200 mls/hr 09/27/19 10:00 09/27/19 09:29 Chloride IVPB 100 mls Q24H GEN Administration Sodium Chloride 10 ml 09/26/19 09:00 09/27/19 09:24 Flush - Normal Saline IVF 10 ml Q12HR GEN Administration - Exam General Appearance: NAD Heart: RRR, no gallops Respiratory: no wheezes, no ronchi Gastrointestinal: soft, no guarding, no rigidity Extremities: no cyanosis Extremities - other findings: B/L feet dressing + Neurological: no new deficit Hosp A/P - Plan DVT proph w/lovenox Infected heel ulcer r/o Osteomyelitis MILTON on CKD 3 due to obstructive uropathy HTN Hypokalemia Hypomagnesemia GERD h/o Cervical CA PLAN: Restart IV Vancomycin/Cefepime Monitor Vancomycin level Cont IVF Replace electrolytes Surg/Nephro input appreciated Will consult Urology and Onc in AM AM labs
[2019-09-27] MEDS ORDERED: Sodium Bicarbonate 150 MEQ in Dextrose 5% in Water 1,000 ML IV SCH (15:00)
--- NOTE | 2019-09-27 15:41 | PDOC.HOSPP ---
- Subjective Encounter Date: 09/26/19 Encounter Time: 08:00 Subjective: no overnight events. This morning, feeling well and has no complaints. - Objective Vital Signs & Weight: Vital Signs (12 hours) Temp Pulse Resp BP Pulse Ox 09/27/19 11:00 98.1 F 84 16 125/81 99 09/27/19 07:50 98.7 F 64 16 116/56 L 100 09/27/19 03:55 97.6 F 67 18 113/61 96 Weight Admit Weight 152 lb Weight 154 lb I&O: 09/26/19 09/27/19 09/28/19 06:59 06:59 06:59 Intake Total 2750 2720 Output Total 600 2350 Balance 2150 370 Result Diagrams: 09/26/19 04:38 09/27/19 06:51 Hospitalist ROS - Review of Systems Constitutional: reports: malaise, other. denies: fever, chills, sweats, weakness Respiratory: denies: cough, dry, shortness of breath Cardiovascular: denies: chest pain, palpitations, orthopnea Gastrointestinal: denies: nausea, vomiting, abdominal pain Genitourinary: denies: dysuria, frequency, hematuria - Medication Medications: Active Medications Generic Name Dose Route Start Last Admin Trade Name Freq PRN Reason Stop Dose Admin Amlodipine Besylate 10 mg 09/26/19 09:00 09/27/19 09:23 Norvasc PO 10 mg DAILY GEN Administration Enoxaparin Sodium 30 mg 09/26/19 09:00 09/27/19 09:23 Lovenox SC 30 mg 0900 GEN Administration Cefepime HCl 1 gm/ Sodium 100 mls @ 200 mls/hr 09/27/19 10:00 09/27/19 09:29 Chloride IVPB 100 mls Q24H GEN Administration Sodium Chloride 10 ml 09/26/19 09:00 09/27/19 09:24 Flush - Normal Saline IVF 10 ml Q12HR GEN Administration - Exam General Appearance: NAD, awake alert Neck: no JVD Heart: RRR, no murmur, no gallops, no rubs Respiratory: CTAB, no wheezes, no rales, no ronchi Gastrointestinal: soft, non-tender, non-distended Extremities: 2+ LE edema Skin - other findings: dressing over right heel Psychiatric: normal affect, normal behavior, oriented to person, oriented to place Hosp A/P (1) Hypertension Code(s): I10 - ESSENTIAL (PRIMARY) HYPERTENSION Status: Acute (2) Nonhealing ulcer of heel Code(s): L97.409 - NON-PRS CHRONIC ULCER OF UNSP HEEL AND MIDFOOT W UNSP SEVERT Status: Acute (3) Acute kidney injury Code(s): N17.9 - ACUTE KIDNEY FAILURE, UNSPECIFIED Status: Acute (4) Hypokalemia Code(s): E87.6 - HYPOKALEMIA Status: Acute - Plan #chronic pressure heel ulcer -pending evaluation by surgery -pending arterial doppler report #M[place] #urinary retention -likely pre- and post-renal; pending nephrology evaluation -retained 700cc, so placed beebe otherwise, management unchanged
--- NOTE | 2019-09-27 15:49 | PRG ---
DATE OF SERVICE: 09/27/2019 SERVICE: Nephrology. SUBJECTIVE: An 84-year-old female with prior history of cervical cancer, seen in followup for acute on chronic renal failure as well as bilateral leg edema. Renal ultrasound yesterday showed hydronephrosis on the left while right kidney was not visualized. The patient has no new complaints. Denied nausea, vomiting, of fever. OBJECTIVE: VITAL SIGNS: Temperature 98.7, pulse 64, respiratory rate 16, SpO2 of 100% on room air, and blood pressure is 116/56. Intake and output in the last 24 hours showed total intake of 2720 with total output of 2250. GENERAL: Elderly female, chronically ill-looking, in no obvious distress. Afebrile. Anicteric. Acyanotic. HEENT: Normocephalic and atraumatic. Oral mucosa is moist. CARDIOVASCULAR: Regular rhythm and rate. Normal heart sounds 1 and 2. RESPIRATORY: Fair air entry bilaterally with no obvious crackle or rhonchi or use of accessory muscles. GI: Full, soft, nontender, and nondistended with normal bowel sounds. UROGENITAL: Sauceda catheter is in place draining some urine. MUSCULOSKELETAL/EXTREMITIES: Muscular wasting of upper body and extremities noted. Moderate bilateral edema of the legs and extending to the thighs noted. Right foot covered with dressing. TECHNICIAN SUPPORT ASSOCIATION: Conscious, alert, oriented x3 with appropriate mental status. DIAGNOSTIC DATA: Chemistry today showed sodium 141, potassium 2.9, chloride 109, CO2 of 19, BUN 44, creatinine 4.49, glucose 94, calcium 6.6, phosphorus 3.9, and albumin 3.4. Magnesium is 1.4. PTH intact is 351. Vitamin D is 13.4. Iron chemistry showed serum iron 21, TIBC 104 with 20% saturation. Ferritin is 307. ASSESSMENT: 1. Acute kidney injury: Most likely due to volume depletion/intravascular contraction with possible contribution from obstructive uropathy. Ultrasound showed hydronephrosis and the patient did go into urinary retention requiring Sauceda catheter placement yesterday. 2. Bilateral hydronephrosis with suspected atrophic right kidney. 3. Obstructive uropathy with acute urinary retention requiring Sauceda catheter placement. 4. Chronic kidney disease, stage 3 and 4. 5. Hypokalemia. 6. Hypocalcemia. 7. Hypomagnesemia. 8. Vitamin D deficiency. 9. Secondary hyperparathyroidism. 10. Hypertension: Control is adequate. 11. Presumed urinary tract infection. Urine culture is growing Escherichia coli. PLAN: 1. We will replete serum potassium with potassium chloride. 2. We will also replete serum magnesium as well as serum calcium. We will also start the patient on vitamin D supplementation. 3. We will also get CT scan of the abdomen and pelvis without contrast for further evaluation of the hydronephrosis. 4. We will also recommend Urology consult. 5. We will also continue IV fluid therapy with sodium bicarbonate. 6. Chronic bilateral edema. Lower extremity Doppler negative for DVT, however, velocities are abnormal suggestive of proximal occlusion. Prior history of cervical cancer is concerning for recurrent disease and obstruction of the venous drainage or lymphatics. We will also get echocardiogram to assess cardiac function in this patient. Further treatment to follow depending on hospital course. Job ID: [id number]
[2019-09-27] MEDS: Calcium Carbonate 600 MG + Vit D TAB PO SCH ×2 (15:56→20:14)
--- NOTE | 2019-09-27 17:13 | ULT ---
VEIN MAPPING OF UPPER EXTREMITIES FOR DIALYSIS ACCESS: HISTORY: Renal failure. FINDINGS: The right subclavian veins were very small and it was very difficult to obtain flow within them, poss ibly related to scarring or incompletely obstructing clot. RIGHT UPPER EXTREMITY BRACHIAL ARTERY: 4.1 mm RADIAL ARTERY: 1.6 mm ULNAR ARTERY: 1.4 mm CEPHALIC VEIN Proximal Arm: 1.6 mm Mid Arm: 1.7 mm Distal Arm: 1.9 mm Antecubital Fossa: 1.6 mm Proximal Forearm: 1.8 mm Mid Forearm: 1.3 mm Distal Forearm: 1.0 mm BASILIC VEIN Proximal Arm: 1.4 mm Mid Arm: 1.2 mm Distal Arm: 0.8 mm Antecubital Fossa: 2.1 mm Proximal Forearm: 1.0 mm Mid Forearm: 0.5 mm Distal Forearm: 0.6 mm LEFT UPPER EXTREMITY BRACHIAL ARTERY: 2.9 mm RADIAL ARTERY: 1.7 mm ULNAR ARTERY: 1.1 mm CEPHALIC VEIN Proximal Arm: 1.7 mm Mid Arm: 1.5 mm Distal Arm: 1.7 mm Antecubital Fossa: 1.6 mm Proximal Forearm: 1.4 mm Mid Forearm: 1.3 mm Distal Forearm: 1.2 mm BASILIC VEIN Proximal Arm: 3.0 mm Mid Arm: 1.3 mm Distal Arm: 1.5 mm Antecubital Fossa: 1.2 mm Proximal Forearm: 0.9 mm Mid Forearm: 0.6 mm Distal Forearm: Not seen POS: [facility]
[2019-09-28 04:54] LABS: #Eosinphils 0.1 thou/uL (0.0-0.7); #Lymphocytes 1.2 thou/uL (1.20-3.40); #Monocytes 0.3 thou/uL (0.11-0.59); #Neutrophils 4.8 thou/uL (1.40-6.50); %Basophils 0.2 % (0.0-1.0); %Eosinophils 1.2 % (0.0-10.0); %Lymphocytes 18.7 % (21.0-51.0); %Monocytes 4.2 % (0.0-10.0); %Neutrophils 75.8 % (42.0-75.0); Hemoglobin 6.8 g/dL (12.0-16.0); Mean Corpuscular HGB CONC 32.8 g/dL (32.0-36.0); Mean Corpuscular Hemoglobin 31.2 pg (27.0-31.0); Mean Platelet Volume 7.6 fL (7.4-10.4); Platelet Count 267 thou/uL (130-400); RBC Distribution Width 12.9 % (11.5-14.5); Red Blood Cell (RBC) Count 2.19 mill/uL (4.20-5.40); White Blood Cell (WBC) Count 6.3 thou/uL (4.8-10.8)
[2019-09-28 05:12] LABS: Albumin 3.4 g/dL (3.4-4.8); Anion Gap 15 mmol/L (10-20); BUN (Urea Nitrogen) 42 mg/dL (9.8-20.1); BUN/Creatinine Ratio 10.24; Calc. Creatinine Clearance 11 mL/min (70-130); Carbon Dioxide 23 mmol/L (23-31); Chloride 109 mmol/L (98-107); Estimated GFR-MDRD 13; Glucose 99 mg/dL (83-110); Magnesium 1.7 mg/dL (1.6-2.6); Phosphorus 3.2 mg/dL (2.3-4.7); Potassium 3.2 mmol/L (3.5-5.1); Sodium 144 mmol/L (136-145)
[2019-09-28] MEDS: Amlodipine 10 MG TAB PO SCH (08:21)
[2019-09-28] MEDS: Calcium Carbonate 600 MG + Vit D TAB PO SCH ×3 (08:21→20:33)
[2019-09-28] MEDS: Cefepime 1 GM in Sodium Chloride 0.9% 100 ML IVPB SCH (08:21)
[2019-09-28] MEDS: Enoxaparin Sodium 30 MG/0.3 ML SYRINGE SC SCH (08:21)
--- NOTE | 2019-09-28 12:02 | PDOC.GSPN ---
Surgery Progress Note: Subj - Subjective Narrative: Patient's wound was quite desiccated today. I had to re-debride more subcutaneous tissue and muscle. The underlying tissue is quite tenuous and the calcaneus is nearly exposed. I am concerned about further desiccation and tissue loss. I am going to have the wound care team place an irrigating VAC to try to keep the wound moist and decrease the bacterial count. Odds of limb salvage are poor but patient is not ready to consider a below-knee amputation. Surgery Progress Note: Obj - Vital signs Vital signs: Vital Signs - Most Recent Temp Pulse Resp BP Pulse Ox 99.0 F 80 14 120/61 96 09/28/19 07:10 09/28/19 07:10 09/28/19 07:10 09/28/19 07:10 09/28/19 07:10 Surgery Progress Note: Results - Labs Result Diagrams: 09/28/19 04:30 09/28/19 04:30 Lab results: Laboratory Results - last 24 hr 09/25/19 09/28/19 09/28/19 11:58 04:30 04:30 WBC 6.3 RBC 2.19 L Hgb 6.8 L Hct 20.8 L MCV 95.0 MCH 31.2 H MCHC 32.8 RDW 12.9 Plt Count 267 MPV 7.6 Neutrophils % 75.8 H Lymphocytes % 18.7 L Monocytes % 4.2 Eosinophils % 1.2 Basophils % 0.2 Neutrophils # 4.8 Lymphocytes # 1.2 Monocytes # 0.3 Eosinophils # 0.1 Basophils # 0.0 Sodium 144 Potassium 3.2 L Chloride 109 H Carbon Dioxide 23 Anion Gap 15 BUN 42 H Creatinine 4.10 H Estimated GFR (MDRD) 13 BUN/Creatinine Ratio 10.24 Glucose 99 Calcium 7.0 L Phosphorus 3.2 Magnesium 1.7 Albumin 3.4 Blood Type O POSITIVE Antibody Screen NEGATIVE Crossmatch See Detail
--- NOTE | 2019-09-28 15:49 | PRG ---
DATE OF SERVICE: 09/28/2019 SERVICE: Nephrology. SUBJECTIVE: An 84-year-old female seen in followup for acute renal failure and bilateral leg edema. Ultrasound showed bilateral hydronephrosis and subsequent CT scan showed bilateral hydronephrosis as well as multiple abdominal and pelvic masses. The patient has no new complaint. OBJECTIVE: VITAL SIGNS: Temperature 98.6, pulse 83, respiratory rate 14, SpO2 100% on room air, blood pressure is 118/66. I and O in the last 24 hours showed total intake of 2470 with total output of 2350. GENERAL: Chronically ill-looking female, in no obvious distress. Afebrile. HEENT: Normocephalic, atraumatic. Conjunctivae, pallor noted. CARDIOVASCULAR: Regular rhythm and rate with normal heart sounds one and two. RESPIRATORY: Fair air entry bilaterally with some transmitted breath sounds. GI: Full, soft, nondistended, nontender with normal bowel sounds. UROGENITAL: Sauceda catheter is in place draining some urine. MUSCULOSKELETAL: Moderate bilateral leg edema noted. Upper extremities are grossly normal. ECOLOGY TEACHER: Conscious, alert, and oriented x3 with appropriate mental status. DIAGNOSTIC DATA: CBC showed WBC count of 6.3, hemoglobin of 6.8, platelet of 267. Chemistry today showed sodium 144, potassium 3.2, chloride 109, CO2 of 23, BUN 42, creatinine 4.1, calcium 7.0, magnesium 1.7, phosphorus 3.2, albumin 3.4. ASSESSMENT: 1. Acute renal failure: Seems to be multifactorial from volume depletion as well as obstructive uropathy. 2. Hypokalemia. 3. Obstructive uropathy. 4. Bilateral leg edema, most likely related to abdominal and pelvic masses leading to decreased venous return. 5. 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 6. Acute on chronic anemia. 7. Prior history of cervical cancer. PLAN: 1. Continue gentle IV fluid hydration. 2. Replete serum potassium with potassium chloride. 3. Awaiting Urology consult. The patient will benefit from decompression of the urinary system. 4. Surgery also is already on the case. Oncology consult is recommended for evaluation of abdominal masses. Further treatment to follow depending on hospital course. Job ID: [id number]
--- NOTE | 2019-09-28 17:01 | PDOC.HOSPP ---
- Subjective Encounter Date: 09/28/19 Encounter Time: 14:00 Subjective: Patient seen and examined for MILTON/foot infection. No N/V. No new complaints. No overnight events - Objective Vital Signs & Weight: Vital Signs (12 hours) Temp Pulse Resp BP Pulse Ox 09/28/19 15:45 98.9 F 80 14 131/61 97 09/28/19 11:00 98.6 F 83 14 118/66 100 09/28/19 07:10 99.0 F 80 14 120/61 96 Weight Admit Weight 152 lb Weight 151 lb I&O: 09/27/19 09/28/19 09/29/19 06:59 06:59 06:59 Intake Total 2720 2470 350 Output Total 2350 2350 Balance 370 120 350 Result Diagrams: 09/28/19 04:30 09/28/19 04:30 EKG Reviewed by me: Yes (Tele SR) Hospitalist ROS - Review of Systems Respiratory: denies: cough, dry, shortness of breath, hemoptysis, SOB with excertion, pleuritic pain, sputum, wheezing, other Cardiovascular: denies: chest pain, palpitations, orthopnea, paroxysmal noc. dyspnea, edema, light headedness, other Gastrointestinal: denies: nausea, vomiting, abdominal pain, diarrhea, constipation, melena, hematochezia, other - Medication Medications: Active Medications Generic Name Dose Route Start Last Admin Trade Name Freq PRN Reason Stop Dose Admin Hydrocodone Bitart/Acetaminophen 1 tab 09/25/19 15:52 09/28/19 11:55 Beecher 5/325 PO 1 tab Q4H PRN Administration Moderate Pain (4-6) Amlodipine Besylate 10 mg 09/26/19 09:00 09/28/19 08:21 Norvasc PO 10 mg DAILY GEN Administration Calcium/Vitamin D 1 tab 09/27/19 15:00 09/28/19 15:49 Caltrate 600 + Vit D PO 1 tab TID GEN Administration Cefepime HCl 1 gm/ Sodium 100 mls @ 200 mls/hr 09/27/19 10:00 09/28/19 08:21 Chloride IVPB 100 mls Q24H GEN Administration Sodium Chloride 10 ml 09/26/19 09:00 09/28/19 08:21 Flush - Normal Saline IVF 10 ml Q12HR GEN Administration - Exam General Appearance: NAD Heart: RRR, no gallops Respiratory: no wheezes, no ronchi Gastrointestinal: no guarding, no rigidity Extremities: no cyanosis, no clubbing Neurological: no new deficit Hosp A/P - Plan DVT proph w/SCDs Infected heel ulcer r/o Osteomyelitis MILTON on CKD 3 due to obstructive uropathy/Anasarca Anemia prob due to renal insuf Multiple abd/pelvic masses Metabolic acidosis HTN Hypokalemia Hypomagnesemia GERD h/o Cervical CA PLAN: Cont IV Vancomycin/Cefepime Monitor Vancomycin level Cont IVF Ureteral stents in AM Await Onc input Consult ID for Atbx recom Cont wound care AM labs DC Lovenox due to Anemia
[2019-09-28] MEDS ORDERED: Acetaminophen 325 MG TAB PO PRN (17:04)
--- NOTE | 2019-09-28 17:19 | CON ---
DATE OF CONSULTATION: 09/28/2019 REASON FOR CONSULTATION: Hydronephrosis. HISTORY OF PRESENT ILLNESS: This is an 84-year-old female, currently admitted with right foot wound. She has a history of chronic kidney disease, cervical cancer, status post chemoradiation complicated by radiation proctitis and history of GI bleed. Upon admission for her right foot wound, she was found to have elevated creatinine, at which point, Nephrology was consulted. She has undergone imaging including renal ultrasound followed by CT scan, which shows bilateral hydronephrosis, left greater than right with atrophic right kidney. Creatinine has now risen to above 4. Her creatinine had previously been in between 1.5 and 2 in 2017. In speaking with the patient today, she denies any suprapubic pain, flank pain, nausea, vomiting, fevers, or chills. PAST MEDICAL HISTORY: Chronic kidney disease, cervical cancer, radiation proctitis, hypertension, and atrophic right kidney. PAST SURGICAL HISTORY: Endoscopy and colonoscopy. FAMILY HISTORY: Reviewed. No history of urologic malignancy. SOCIAL HISTORY: The patient lives with her son, nonsmoker. ALLERGIES: NO KNOWN DRUG ALLERGIES. HOME MEDICATIONS: Reviewed. No pertinent urology medications. REVIEW OF SYSTEMS: Ten-point review of systems is negative except as mentioned in my HPI. PHYSICAL EXAMINATION: VITAL SIGNS: Afebrile. Vitals stable. Good urine output. GENERAL: No acute distress, conversant. HEENT: Head, normocephalic and atraumatic. Eyes; extraocular movements intact. Sclerae are nonicteric. NECK: Supple. Trachea in midline. LUNGS: Breathing unlabored. Symmetric chest expansion. HEART: Regular rate and rhythm. ABDOMEN: Soft, nontender, and nondistended. No flank tenderness. No suprapubic tenderness. GENITOURINARY: Sauceda catheter in good position draining clear urine. EXTREMITIES: Upper extremities without clubbing, cyanosis, or edema. SKIN: Warm and dry. NEUROLOGIC: Alert and oriented x3. PSYCHIATRIC: Normal mood and affect. LABORATORY DATA: Reviewed. Creatinine 4.10 today. No issues with hyperkalemia. Urinalysis from 09/24 negative for nitrites or leukocytes or blood. IMAGING DATA: I personally reviewed her CT scan, which shows an atrophic right kidney with hydronephrosis and a severely hydronephrotic left kidney. It is difficult to determine where the ureters are obstructed, although this is likely due to tumor or scarring related to her cervical cancer. ASSESSMENT AND PLAN: Bilateral hydronephrosis, acute on chronic kidney disease. I discussed this issue with the patient and advised that we proceed to the operating room for cystoscopy with ureteral stent placement. I explained that there is a chance that we are being unable to place stents or even if the stents are placed properly, they may not provide adequate drainage and then we would need to consider percutaneous nephrostomy tubes. She expressed understanding and agrees to proceed to the operating room. We did discuss the risks of bleeding, infection, pain. TIME SPENT: Greater than 70 minutes spent in the patient's care. Job ID: [id number]
--- NOTE | 2019-09-28 18:40 | CON ---
DATE OF CONSULTATION: REASON FOR CONSULT: Abdominal mass. HISTORY OF PRESENT ILLNESS: Ms. Alfred is an 84-year-old female with a past medical history of stage IIIB cervical cancer, status post chemoradiation in 2005. She presented to the emergency room on Saturday with right heel pain. She was diagnosed with a pressure ulcer of the right heel with underlying peripheral vascular disease. Dr. Weir has seen the patient and is working with Wound Care for debridement and treatment. The patient's creatinine on admission was 4.74. Dr. Mtz was consulted. An abdominal and pelvis CT was performed. The right kidney was atrophic. She has severe bilateral hydronephrosis, the left was worse than the right. There was a 5.5 x 5 x 6 solid mass in the deep aspect of the abdominal cavity, just to the left and anterior to the lumbar spine. There was another 7.5 x 4.5 x 5.5 cm mass abutting the anterior portion of the mid and lower lumbar spine. There was a third mass located slightly lateral and inferior to the first mass, measuring 4.5 x 4 x 3 cm. There was a 7.5 x 2 cm structure replacing the prior uterine mass. She had severe retroperitoneal masses causing obstruction of the ureters. She had multiple fluid-filled dilated small bowel loops, which could be possibly representing an ileus versus partial small-bowel obstruction. The patient states she has been in her usual state of health prior to arrival. She states she ambulates with assistance. She lives with her son. She denies any weight loss or poor appetite. No shortness of breath. No abdominal discomfort. No constipation. The patient was also noted to be anemic with a hemoglobin of 7.8. She does deny any hematochezia, melena, or hematuria. No vaginal discharge or bleeding. PAST MEDICAL HISTORY: 1. Stage IIIB cervical cancer, status post chemoradiation in 2005. 2. Hypertension. PAST SURGICAL HISTORY: 1. MediPort placement. 2. Hysterectomy. 3. Appendectomy. ALLERGIES: NO KNOWN DRUG ALLERGIES. HOME MEDICATIONS: 1. Amlodipine. 2. Clonidine. FAMILY HISTORY: No history of cervical cancer. SOCIAL HISTORY: . Lives with her son. No alcohol, tobacco, or illicit drug use. REVIEW OF SYSTEMS: A 10-point review of systems is negative. PHYSICAL EXAMINATION: VITAL SIGNS: Temperature is 98.9, pulse is 80, respiratory rate 14, blood pressure is 131/61. She is 97% on room air. GENERAL: This is a chronically ill-appearing female, in no acute distress. HEENT: Normocephalic and atraumatic. NECK: Supple. CV: Regular rate and rhythm. LUNGS: Clear anterior. ABDOMEN: Soft and nontender. Bowel sounds are positive. EXTREMITIES: No clubbing or cyanosis. SKIN: No rash. HEMATOLOGIC: No petechiae or purpura. NEUROLOGIC: Nonfocal. PERTINENT LABS AND X-RAYS: Current WBCs are 6.3, hemoglobin 6.8, hematocrit 20.8, platelet count 267,000, 78% neutrophils, 18% lymphocytes. Sodium 144, potassium 3.2, chloride 109, CO2 is 23, BUN is 42, creatinine 4.1, calcium 7, phosphorus 3.2, mag 1.7. Iron is 21, TIBC is 104, ferritin is 307, bilirubin 0.5, AST is 17, ALT is less than 7, alkaline phosphatase is 77. Serum total protein is 6.9, albumin 3.2, globulin 3.7. Radiology per HPI. ASSESSMENT: 1. Multiple abdominal masses, worrisome for malignancy. 2. Obstructive uropathy. 3. Tissue necrosis of the right heel. 4. Severe anemia. DISCUSSION: The patient has been transfused [address] Rincon has seen the patient and is planning ureteral stents tomorrow. Need a tissue diagnosis as her cervical cancer was 14 years ago. Hopefully, some tissue can be obtained tomorrow with stent placement. If not, we will have to discuss further with surgery and imaging, what can we biopsy. Case has been discussed with Dr. Hilton. I did discuss with the patient and she agrees to proceed. Thank you for the consult. Job ID: [id number] [facility]
[2019-09-28 19:38] LABS: Vancomycin, Trough 24.4 ug/mL
[2019-09-28] MEDS: Saccharomyces boulardii 250 MG CAP PO SCH (20:33)
[2019-09-29 04:59] LABS: #Eosinphils 0.1 thou/uL (0.0-0.7); #Lymphocytes 2.3 thou/uL (1.20-3.40); #Monocytes 0.3 thou/uL (0.11-0.59); #Neutrophils 5.7 thou/uL (1.40-6.50); %Basophils 0.1 % (0.0-1.0); %Lymphocytes 27.7 % (21.0-51.0); %Neutrophils 67.2 % (42.0-75.0); Hemoglobin 10.5 g/dL (12.0-16.0); Mean Corpuscular HGB CONC 32.4 g/dL (32.0-36.0); Mean Corpuscular Volume 95.6 fL (78.0-98.0); Mean Platelet Volume 7.6 fL (7.4-10.4); Platelet Count 252 thou/uL (130-400); RBC Distribution Width 12.8 % (11.5-14.5); Red Blood Cell (RBC) Count 3.39 mill/uL (4.20-5.40); White Blood Cell (WBC) Count 8.5 thou/uL (4.8-10.8)
[2019-09-29 05:12] LABS: Albumin 3.6 g/dL (3.4-4.8); Anion Gap 17 mmol/L (10-20); BUN (Urea Nitrogen) 37 mg/dL (9.8-20.1); BUN/Creatinine Ratio 9.89; Calc. Creatinine Clearance 12 mL/min (70-130); Calcium 8.4 mg/dL (7.8-10.44); Carbon Dioxide 20 mmol/L (23-31); Chloride 108 mmol/L (98-107); Estimated GFR-MDRD 14; Glucose 84 mg/dL (83-110); Magnesium 1.6 mg/dL (1.6-2.6); Phosphorus 3.1 mg/dL (2.3-4.7); Sodium 141 mmol/L (136-145)
[2019-09-29] MEDS ORDERED: Magnesium 2 GM/50 ML 2 GM in Premix Bag 1 BAG IVPB SCH (06:15)
[2019-09-29] MEDS: Calcium Carbonate 600 MG + Vit D TAB PO SCH ×3 (08:21→21:30)
[2019-09-29] MEDS: Amlodipine 10 MG TAB PO SCH (08:21)
--- NOTE | 2019-09-29 08:59 | PDOC.HOSPP ---
- Subjective Encounter Date: 09/29/19 Encounter Time: 09:00 Subjective: Patient seen and examined for B/L LE infection with MILTON. No N/V. No new complaints. No overnight events - Objective Vital Signs & Weight: Vital Signs (12 hours) Temp Pulse Resp BP Pulse Ox 09/29/19 07:38 98.2 F 82 16 134/83 99 09/29/19 07:27 96 09/29/19 04:40 97.8 F 84 14 143/81 H 96 Weight Admit Weight 152 lb Weight 142 lb 3.029 oz I&O: 09/28/19 09/29/19 09/30/19 06:59 06:59 06:59 Intake Total 2470 1410 Output Total 2350 1300 Balance 120 110 Result Diagrams: 09/29/19 04:41 09/29/19 04:41 EKG Reviewed by me: Yes (Tele SR) Hospitalist ROS - Review of Systems Respiratory: denies: cough, dry, shortness of breath, hemoptysis, SOB with excertion, pleuritic pain, sputum, wheezing, other Cardiovascular: denies: chest pain, palpitations, orthopnea, paroxysmal noc. dyspnea, edema, light headedness, other - Medication Medications: Active Medications Generic Name Dose Route Start Last Admin Trade Name Freq PRN Reason Stop Dose Admin Hydrocodone Bitart/Acetaminophen 1 tab 09/25/19 15:52 09/28/19 11:55 Somers 5/325 PO 1 tab Q4H PRN Administration Moderate Pain (4-6) Amlodipine Besylate 10 mg 09/26/19 09:00 09/29/19 08:21 Norvasc PO 10 mg DAILY GEN Administration Calcium/Vitamin D 1 tab 09/27/19 15:00 09/29/19 08:21 Caltrate 600 + Vit D PO 1 tab TID GEN Administration Cefepime HCl 1 gm/ Sodium 100 mls @ 200 mls/hr 09/27/19 10:00 09/28/19 08:21 Chloride IVPB 100 mls Q24H GEN Administration Saccharomyces Boulardii 250 mg 09/28/19 21:00 09/28/19 20:33 Florastor PO 250 mg HS GEN Administration Sodium Chloride 10 ml 09/26/19 09:00 09/29/19 08:21 Flush - Normal Saline IVF 10 ml Q12HR GEN Administration - Exam General Appearance: NAD Heart: RRR, no gallops Respiratory: no wheezes, no ronchi Gastrointestinal: soft, no guarding, no rigidity Extremities: no cyanosis Neurological: no new deficit Psychiatric: A&O x 3 Hosp A/P - Plan Infected heel ulcer r/o Osteomyelitis -on IV Vancomycin/Cefepime MILTON on CKD 3 due to obstructive uropathy/Anasarca -improving Anemia prob due to renal insuf -s/p 1 unit PRBC Multiple abd/pelvic masses Metabolic acidosis HTN Hypokalemia Hypomagnesemia GERD h/o Cervical CA PLAN: Cont IVF Ureteral stents today Onc/Urology input appreciated Await ID for Atbx recom Cont wound care AM labs Lovenox on hold due to Anemia OBGYN consulted for biopsy
--- NOTE | 2019-09-29 09:31 | PRG ---
DATE OF SERVICE: 09/29/2019 SERVICE: Nephrology. SUBJECTIVE: An 84-year-old lady, seen in followup for acute renal failure. No new problem. The patient is for cystoscopy with possible stent placement to the ureters. Denied nausea or vomiting. OBJECTIVE: VITAL SIGNS: Temperature 98.3, pulse 82, respiratory rate 16, SpO2 of 99% on room air, blood pressure is 134/83. I and O in the last 24 hours showed total intake of about 1410 with total output of 1300. GENERAL: An elderly female, in no distress. Afebrile. Anicteric. Acyanotic. HEENT: Normocephalic and atraumatic. Oral mucosa is moist. CARDIOVASCULAR: Regular rhythm and rate with normal heart sounds 1 and 2. GI: Full, soft, nontender, nondistended with normal bowel sounds. UROGENITAL: Sauceda catheter is in place draining some urine. EXTREMITIES: Moderate edema of both lower extremities noted. Upper extremities are grossly normal without edema except muscle wasting. WEB DATABASE DEVELOPER: Conscious, alert, oriented x3 with appropriate mental status. DIAGNOSTIC DATA: CBC showed WBC count of 8.5, hemoglobin of 10.5, platelet of 252. Chemistry showed sodium 141, potassium 4.0, chloride 108, CO2 of 20, BUN 37, creatinine 3.74, calcium 8.4, phosphorus 3.1, magnesium 1.6, albumin 3.6. ASSESSMENT: 1. Acute kidney injury: Most likely due to volume contraction from poor oral intake as well as obstructive uropathy. With IV fluid, creatinine has improved from 5.12 on admission to 3.74. 2. Obstructive uropathy with bilateral hydronephrosis. 3. Hypokalemia: Due to poor oral intake. Repleted and corrected. 4. Hypomagnesemia: Due to poor oral intake. Repleted. 5. Metabolic acidosis: Due to renal failure. Improved. 6. Bilateral leg edema: Most likely due to hypoalbuminemia and decreased venous return from possible obstruction. The patient was found to have multiple abdominal masses. 7. Protein-calorie malnutrition. 8. Anemia: Due to anemia of chronic illness as well as chronic kidney disease. PLAN: 1. We will discontinue IV fluid therapy for now to avoid fluid overload. 2. We will monitor electrolytes and replete as indicated. 3. The patient is for cystoscopy with stent placement. 4. Evaluation for multiple abdominal masses concerning for neoplasm in process. 5. We will continue to monitor renal function. 6. Avoid nephrotoxic agents. Job ID: [id number]
--- NOTE | 2019-09-29 10:09 | PDOC.GSPN ---
Surgery Progress Note: Subj - Subjective Narrative: Patient is doing all right. She is not complaining of any pain in her heel. The VAC is in place and has a good seal. She is on the schedule today for cystoscopy and stenting for severe hydronephrosis. Unfortunately, she has had hydronephrosis on one side for over 10 years and that kidney is now atrophic. Her one remaining functional kidney has severe hydronephrosis now and we are trying to preserve function on that side. Because the hydronephrosis is probably related to recurrent likely malignant masses in her retroperitoneum and pelvis. She had cervical cancer many years ago and now has multiple heterogeneous masses with internal calcifications in the retroperitoneum and pelvis. One is in the area of the vaginal cuff and may be amenable to biopsy. I have asked the OB hospitalist to see her for this. The biopsies could be done while she is under anesthesia for her cystoscopy. The patient is agreeable to this plan. I will see her tomorrow with the wound care team for her VAC change. Surgery Progress Note: Obj - Vital signs Vital signs: Vital Signs - Most Recent Temp Pulse Resp BP Pulse Ox 98.2 F 82 16 134/83 99 09/29/19 07:38 09/29/19 07:38 09/29/19 07:38 09/29/19 07:38 09/29/19 07:38 Surgery Progress Note: Results - Labs Result Diagrams: 09/29/19 04:41 09/29/19 04:41 Lab results: Laboratory Results - last 24 hr 09/29/19 09/29/19 09/29/19 04:41 04:41 04:41 WBC 8.5 RBC 3.39 L Hgb 10.5 L Hct 32.4 L MCV 95.6 MCH 31.0 MCHC 32.4 RDW 12.8 Plt Count 252 MPV 7.6 Neutrophils % 67.2 Lymphocytes % 27.7 Monocytes % 4.0 Eosinophils % 1.0 Basophils % 0.1 Neutrophils # 5.7 Lymphocytes # 2.3 Monocytes # 0.3 Eosinophils # 0.1 Basophils # 0.0 Sodium 141 Potassium 4.0 Chloride 108 H Carbon Dioxide 20 L Anion Gap 17 BUN 37 H Creatinine 3.74 H Estimated GFR (MDRD) 14 BUN/Creatinine Ratio 9.89 Glucose 84 Calcium 8.4 Phosphorus 3.1 Magnesium 1.6 Albumin 3.6 Carcinoembryonic Ag 6.72 H
[2019-09-29] MEDS: Cefepime 1 GM in Sodium Chloride 0.9% 100 ML IVPB SCH (10:25)
[2019-09-29] MEDS ORDERED: PROPOFOL 200 MG/20 ML VIAL ONE (12:31)
[2019-09-29] MEDS ORDERED: Ondansetron PF 4 MG/2 ML Vial ONE (12:31)
[2019-09-29] MEDS ORDERED: Iopamidol 50 ML FS ONE (12:47)
[2019-09-29] MEDS ORDERED: Fentanyl 100 MCG/2 ML VIAL ONE (13:00)
[2019-09-29] MEDS ORDERED: Ondansetron HCl/PF 4 MG/2 ML Vial IVP PRN (15:39)
[2019-09-29] MEDS ORDERED: Promethazine HCl 25 MG/ML VIAL IM PRN (15:39)
[2019-09-29] MEDS ORDERED: Promethazine HCl 25 MG/ML VIAL SLOW IVP PRN (15:39)
--- NOTE | 2019-09-29 15:47 | RAD ---
XR IVP Retrograde History: Bilateral ureteral stent placement. Cystoscopy Comparison: CT exam of the abdomen and pelvis 2 days prior Findings: Multiple spot images were obtained. Satisfactory location of both double-J ureteral stents. Interval decompression of the collecting systems. Impression: Fluoroscopy for surgical use.
--- NOTE | 2019-09-29 16:45 | OP ---
DATE OF PROCEDURE: 09/29/2019 PREOPERATIVE DIAGNOSES: Bilateral hydronephrosis, right atrophic kidney. POSTOPERATIVE DIAGNOSES: Bilateral hydronephrosis, right atrophic kidney. PROCEDURES PERFORMED: Cystoscopy with bilateral retrograde pyelogram, bilateral ureteral stent placement using 7 x 24 double-J ureteral stents. ANESTHESIA: TIVA. COMPLICATIONS: None. BLOOD LOSS: None. SPECIMEN: None. DESCRIPTION OF PROCEDURE: After informed consent, the patient was taken to the operating room. She was transferred to the table. Anesthesia was established. A time-out was performed showing the correct patient, site, and procedure. We ensured that preoperative antibiotics had been administered earlier in the day. She was prepped and draped in the lithotomy position. I began by passing the 23-[place] rigid cystoscope through the urethra into the bladder. Bladder was systematically examined noting several diverticula and a few areas of edema secondary to the Sauceda balloon. The trigone appeared somewhat abnormal, although the ureters were visible. There were no obvious mucosal abnormalities of the urinary bladder. I began by inserting the Pollack catheter into the left ureter with the aid of a Sensor wire. Retrograde pyelogram was performed showing good filling of the ureter mid to proximal ureter, at which point it became severely hydronephrotic and hydroureter. An Amplatz wire was passed into the renal pelvis and then a 7 x 24 double-J ureteral stent passed over the wire with a curl in the kidney and curl in the bladder under fluoroscopic guidance. I then proceeded similar procedure on the right side performing a retrograde pyelogram showing good filling of the ureter and renal pelvis with only minimal hydronephrosis. The Amplatz wire was then passed and a 7 x 24 double-J ureteral stent placed over this with a curl in the kidney and curl in the bladder. I then placed a 16-[place] Sauceda catheter into the bladder draining clear urine. 10 mL were instilled into the balloon and this was connected to leg bag. The case was then turned over to Gynecology for biopsy. Job ID: [id number]
--- NOTE | 2019-09-29 20:01 | CON ---
DATE OF CONSULTATION: 09/29/2019 CHIEF COMPLAINT: Pelvic abdominal masses. HISTORY OF PRESENT ILLNESS: The patient is an 84-year-old female, who was admitted to the hospital on 09/25/2019 in renal failure, presenting with a right foot wound. Her workup revealed a history of cervical cancer approximately 10 years ago per her son, which was treated with chemo and radiation. When asked directly, the patient denies any hysterectomy or surgery as part of her treatment. Given the patient' s age, the patient was unable to remember any more details about this diagnosis. A CT scan at initial presentation revealed severe bilateral hydronephrosis, atrophy of the right kidney, multiple new neoplastic tumor masses in the mid and lower abdominal cavity, severe anasarca, mild edema, multiple fluid-filled dilated small bowel loops in the mid to lower abdominal cavity. One of these masses appears to be in the lower uterine segment or in place of the lower uterine segment, which is thought to represent a vaginal cuff. After discussing these findings with Ms. Jenise Alfred and the patient's son by phone at the request of Ms. Alfred, recommendations were made to do an exam under anesthesia as the patient was going to the operating room for placement of ureteral stents and at that time of evaluation, possible biopsies if visible. The patient had understood the risk of bleeding and desired to proceed. Verbal and written consent was provided. At the day of my encounter with Ms. Alfred, she had blood pressure of 134/83, temperature of 98.2, pulse of 82, respiratory rate of 16, and saturating 99% on room air. In general , she was supine and appeared to be in reasonable comfort. About 15 to 20 minutes was spent [id number] discussing and reviewing information that had been gathered up to that point concerning the TRANSITION SOCIAL WORKER concerns and discussing these findings with her son by phone. Once the patient was taken to the operating room and the urologist was finished his portion of procedure, I was called down to perform the exam under anesthesia. At that time, the patient was noted to have a small amount of bleeding or blood clot present at the introitus, which was believed to be secondary from the cystoscopy. Careful inspection of the vaginal orifice revealed no active bleeding. Given the age and the atrophy of the vagina, a digital exam was performed to feel the extent of the vaginal canal and was noted to have a blind end about 2 inches from the introitus. The palpable portions of the vagina were smooth. There were no hard nodules that were palpable. A small pediatric speculum was used to visualize the end of the cuff, which again could not be clearly determined if this was result of a surgery that the patient had failed to remember the result of radiation from 10 years prior or consequences of tumor burden that is extending. Regardless, visibly there were no lesions that were visible for biopsy. At this point, the procedure was completed and the patient was returned back to the care of the OR team for extubation and return to recovery. ASSESSMENT AND PLAN: The patient is an 84-year-old female with what appears to be either recurrent cervical cancer or a new primary of some kind. Imaging does demonstrate tumor burden there at the location of the uterus and multiple sites in the lower pelvis. Until proven otherwise, suspect for recurrence of her known previous diagnosis of cervical cancer makes the most sense. For pathologic diagnosis, the patient may need IR to biopsy one of these locations or referral to a TRANSITION SOCIAL WORKER oncologist. I will share my findings with Mrs. Alfrde' son as she has requested this. I do not know who her previous oncologist was; however, she does have Oncology consulted during this hospitalization. There is nothing more that I can provide at this time. Job ID: [id number] MTDD
--- NOTE | 2019-09-29 21:24 | CCLSPC ---
Lower extremity arterial evaluation of the lower extremities performed due to an ulceration on the right heel with risk factors of cardiovascular disease being age and history of hypertension. Examination of the right leg reveals slightly diminished waveforms at the femoral, popliteal, and dorsalis pedis levels with an ankle-arm index of 0.84. Toe-brachial index is diminished at 0.23. This suggests mild vascular disease in the large vessels, perhaps at the aortoiliac level and possibly small vessel disease. There is evidence of noncompressibility of the tibial vessels in the dorsalis pedis distribution consistent with calcification due to her age. Examination of the left leg reveals significantly diminished femoral, popliteal, and pedal waveforms with an ankle-arm index of 1.45 and a toe-brachial index of 0.56. Waveforms in the left leg are more suggestive of significant iliac disease and possible superficial femoral artery disease. Heel ulceration is reported on the right leg and there appears to be adequate blood flow to the right leg for healing in the large vessels. Job ID: [id number]
[2019-09-29] MEDS: Saccharomyces boulardii 250 MG CAP PO SCH (21:30)
[2019-09-30 04:14] LABS: #Eosinphils 0.1 thou/uL (0.0-0.7); #Lymphocytes 1.6 thou/uL (1.20-3.40); #Monocytes 0.3 thou/uL (0.11-0.59); #Neutrophils 6.6 thou/uL (1.40-6.50); %Lymphocytes 18.3 % (21.0-51.0); %Monocytes 3.8 % (0.0-10.0); %Neutrophils 76.8 % (42.0-75.0); Mean Corpuscular HGB CONC 32.3 g/dL (32.0-36.0); Mean Corpuscular Hemoglobin 31.1 pg (27.0-31.0); Mean Corpuscular Volume 96.2 fL (78.0-98.0); Mean Platelet Volume 7.8 fL (7.4-10.4); Platelet Count 247 thou/uL (130-400); RBC Distribution Width 12.9 % (11.5-14.5); Red Blood Cell (RBC) Count 3.22 mill/uL (4.20-5.40); White Blood Cell (WBC) Count 8.5 thou/uL (4.8-10.8)
[2019-09-30 04:27] LABS: Vancomycin, Random 19.6 ug/mL (See Comment)
[2019-09-30 04:29] LABS: Albumin 3.4 g/dL (3.4-4.8); Anion Gap 17 mmol/L (10-20); BUN (Urea Nitrogen) 38 mg/dL (9.8-20.1); BUN/Creatinine Ratio 10.83; Calc. Creatinine Clearance 12 mL/min (70-130); Calcium 8.9 mg/dL (7.8-10.44); Carbon Dioxide 21 mmol/L (23-31); Chloride 107 mmol/L (98-107); Estimated GFR-MDRD 15; Glucose 88 mg/dL (83-110); Phosphorus 3.7 mg/dL (2.3-4.7); Potassium 4.1 mmol/L (3.5-5.1); Sodium 141 mmol/L (136-145)
[2019-09-30] MEDS: Amlodipine 10 MG TAB PO SCH (07:57)
[2019-09-30] MEDS: Calcium Carbonate 600 MG + Vit D TAB PO SCH ×3 (07:57→20:33)
[2019-09-30] MEDS ORDERED: Vancomycin HCl 250 MG in Sodium Chloride 0.9% 100 ML IVPB SCH (09:00)
--- NOTE | 2019-09-30 09:02 | PDOC.HOSPP ---
- Subjective Encounter Date: 09/30/19 Encounter Time: 18:00 Subjective: Patient seen and examined for MILTON/heel wounds. s/p ureteral stents. No fever. No new complaints. No overnight events - Objective Vital Signs & Weight: Vital Signs (12 hours) Temp Pulse Resp BP Pulse Ox 09/30/19 07:54 98.6 F 95 18 150/98 H 99 09/30/19 03:51 97.9 F 93 16 144/84 H 97 09/29/19 21:30 98.2 F 73 18 139/82 93 L Weight Admit Weight 152 lb Weight 143 lb 6 oz I&O: 09/29/19 09/30/19 10/01/19 06:59 06:59 06:59 Intake Total 1410 480 Output Total 1300 1350 Balance 110 -870 Result Diagrams: 10/01/19 03:45 10/01/19 03:45 EKG Reviewed by me: Yes (Tele SR) Hospitalist ROS - Review of Systems Respiratory: denies: cough, dry, shortness of breath, hemoptysis, SOB with excertion, pleuritic pain, sputum, wheezing, other Cardiovascular: denies: chest pain, palpitations, orthopnea, paroxysmal noc. dyspnea, edema, light headedness, other - Medication Medications: Active Medications Generic Name Dose Route Start Last Admin Trade Name Freq PRN Reason Stop Dose Admin Hydrocodone Bitart/Acetaminophen 1 tab 09/25/19 15:52 09/28/19 11:55 [place] 5/325 PO 1 tab Q4H PRN Administration Moderate Pain (4-6) Hydrocodone Bitart/Acetaminophen 2 tab 09/25/19 15:52 09/30/19 08:56 [place] 5/325 PO 2 tab Q4H PRN Administration Severe Pain (7-10) Amlodipine Besylate 10 mg 09/26/19 09:00 09/30/19 07:57 Norvasc PO 10 mg DAILY GEN Administration Calcium/Vitamin D 1 tab 09/27/19 15:00 09/30/19 07:57 Caltrate 600 + Vit D PO 1 tab TID GEN Administration Cefepime HCl 1 gm/ Sodium 100 mls @ 200 mls/hr 09/27/19 10:00 09/29/19 10:25 Chloride IVPB 100 mls Q24H GEN Administration Saccharomyces Boulardii 250 mg 09/28/19 21:00 09/29/19 21:30 Florastor PO 250 mg HS GEN Administration Sodium Chloride 10 ml 09/26/19 09:00 09/30/19 07:57 Flush - Normal Saline IVF 10 ml Q12HR GEN Administration - Exam General Appearance: NAD Heart: RRR, no gallops Respiratory: no wheezes, no ronchi Gastrointestinal: non-tender, non-distended, normal bowel sounds Extremities: no cyanosis Neurological: no new deficit Hosp A/P - Plan PT/OT Infected heel ulcer r/o Osteomyelitis -on IV Vancomycin/Cefepime MILTON on CKD 3 due to obstructive uropathy/Anasarca -improving -s/p ureteral stent Anemia prob due to renal insuf -s/p 1 unit PRBC Multiple abd/pelvic masses Metabolic acidosis HTN Hypokalemia Hypomagnesemia GERD h/o Cervical CA PVD PLAN: Cont IVF Code status changed to DNR Await ID for Atbx recom Cont wound care/vac AM labs SNF r[facility] on hold due to Anemia
[2019-09-30] MEDS ORDERED: Metoprolol Tartrate 25 MG TAB PO SCH ×2 (09:56→10:00)
--- NOTE | 2019-09-30 10:23 | PRG ---
DATE OF SERVICE: 09/30/2019 SERVICE: Nephrology. SUBJECTIVE: An 84-year-old lady seen in followup for acute kidney injury. The patient had bilateral ureteral stent placements yesterday. No new problem. She, however, seems to be more forgetful today. Denied nausea, vomiting, abdominal pain. OBJECTIVE: VITAL SIGNS: Temperature 98.6, pulse 95, respiratory rate 18, SpO2 of 99% on room air, blood pressure is 150/98. Intake and output in the last 24 hours showed total intake of 480 with total output of 1250. GENERAL: Chronically ill-looking elderly, in no obvious distress. Afebrile. Anicteric. HEENT: Normocephalic, atraumatic. Oral mucosa is moist. CARDIOVASCULAR: Regular rhythm and rate with normal heart sounds one and two. RESPIRATORY: Fair air entry bilaterally with no obvious crackle or use of accessory muscles. GI: Full, soft, nondistended, nontender with normal bowel sounds. UROGENITAL: Sauceda catheter is in place draining some blood-tinged urine. MUSCULOSKELETAL: Some wasting of the upper extremities with skin noted. Bilateral lower extremity edema noted. Right foot covered with dressing and wound VAC intact. TAX PROCESSOR: Conscious and awake. Oriented x2 at least. Memory lapse is noted. DIAGNOSTIC DATA: CBC showed WBC count of 8.5, hemoglobin of 10.0, MCV of 96.2, platelets of 347. Chemistry showed sodium 141, potassium 4.1, chloride 107, CO2 of 21, BUN 38, creatinine 3.51, glucose 88, calcium 8.9, phosphorus 3.7, albumin 3.4. Tumor markers showed a carcinoembryonic antigen of 6.7 too elevated as well as a CA-125 elevated at 103.5. ASSESSMENT: 1. Acute kidney injury: Due to hemodynamic factors related to volume depletion as well as obstructive uropathy. Creatinine has gone down from 5.12 on presentation to 3.74 with IV fluid therapy. The patient had bilateral ureteral stent placement for bilateral hydronephrosis with creatinine continued to trend downwards. BUN, however, went up today. This is concerning for infusion dehydration, as the patient is negative in the last 24 hours. 2. Hypokalemia: Due to urinary losses: Resolved. 3. Metabolic acidosis due to acute kidney injury. Improving. 4. Obstructive uropathy with bilateral hydronephrosis: Most likely due to obstruction of the ureters related to abdominal masses. 5. Severe protein-calorie malnutrition. 6. Bilateral leg edema: Most likely due to venous obstruction related to intraabdominal masses. DVT has been ruled out. 7. Presumed neoplastic disease given intraabdominal masses. Query recurrent cervical cancer or new cancer. Oncology is following. 8. Hypertension: Control is suboptimal. PLAN: 1. We will start amlodipine. We will add metoprolol to amlodipine to get adequate BP control. 2. We will monitor intake and output with a view to starting low-dose IV infusion to prevent dehydration and suspected post obstructive diuresis. 3. We will monitor renal function and electrolytes, and replete as indicated. 4. Further evaluation as per other specialties. Job ID: [id number]
[2019-09-30] MEDS: Cefepime 1 GM in Sodium Chloride 0.9% 100 ML IVPB SCH (10:32)
--- NOTE | 2019-09-30 11:05 | PDOC.MOPN ---
Interval History: Patient had ureter stents placed yesterday. Unable to get tissue biopsy. Patient denies pain. - Vital Signs Vital Signs: Vital Signs (12 hours) Temp Pulse Resp BP Pulse Ox 09/30/19 11:03 98.4 F 79 16 138/75 96 09/30/19 10:23 99 09/30/19 07:54 98.6 F 95 18 150/98 H 99 09/30/19 03:51 97.9 F 93 16 144/84 H 97 Weight Admit Weight 152 lb Weight 143 lb 6 oz - Physical Exam General: Alert Lungs: Clear to auscultation Cardiovascular: Regular rate Extremities: Other (RLE heel wound) - Labs Result Diagrams: 09/30/19 04:00 09/30/19 04:00 Lab results: Laboratory Results - last 24 hr 09/30/19 04:00: Random Vancomycin 19.6 09/30/19 04:00: CA 125 (MARCE) 103.5 H 09/30/19 04:00: WBC 8.5, RBC 3.22 L, Hgb 10.0 L, Hct 31.0 L, MCV 96.2, MCH 31.1 H, MCHC 32.3, RDW 12.9, Plt Count 247, MPV 7.8, Neutrophils % 76.8 H, Lymphocytes % 18.3 L, Monocytes % 3.8, Eosinophils % 1.0, Basophils % 0.0, Neutrophils # 6.6 H, Lymphocytes # 1.6, Monocytes # 0.3, Eosinophils # 0.1, Basophils # 0.0 09/30/19 04:00: Sodium 141, Potassium 4.1, Chloride 107, Carbon Dioxide 21 L, Anion Gap 17, BUN 38 H, Creatinine 3.51 H, Estimated GFR (MDRD) 15, BUN/ Creatinine Ratio 10.83, Glucose 88, Calcium 8.9, Phosphorus 3.7, Albumin 3.4 Status: lab reviewed by me A/P - Problem (1) Abdominal mass Current Visit: Yes Code(s): R19.00 - INTRA-ABD AND PELVIC SWELLING, MASS AND LUMP, UNSP SITE Status: Acute (2) History of cervical cancer Current Visit: Yes Code(s): Z85.41 - PERSONAL HISTORY OF MALIGNANT NEOPLASM OF CERVIX UTERI Status: Acute (3) Acute kidney injury Current Visit: Yes Code(s): N17.9 - ACUTE KIDNEY FAILURE, UNSPECIFIED Status : Acute (4) Nonhealing ulcer of heel Current Visit: Yes Code(s): L97.409 - NON-PRS CHRONIC ULCER OF UNSP HEEL AND MIDFOOT W UNSP SEVERT Status: Acute - Plan Plan: Patient has multiple abdominal masses consistent with metastatic disease. She had ureter stents yesterday with minimal improvement in kidney function. She has non healing wound of right heel secondary to sedentary lifestyle. She has a poor performance status and is essentially bed ridden. Unable to get tissue biopsy yesterday. Will need IR intervention and/or referral to [facility] in [place]. She is likely unable to tolerate any palliative chemotherapy due to kidney function and performance status. Palliative care is discussing MPOA with son. Recommend hospice and focus on comfort and quality of life. Discussed with Dr. Hilton and Dr. Weir.
--- NOTE | 2019-09-30 11:23 | PDOC.GSPN ---
Surgery Progress Note: Subj - Subjective Narrative: Patient is feeling okay today. Not having much pain in her heel. Tolerated her dressing change well. There is some early granulation tissue around the periphery. The central area still has some very marginal appearing tissue but there is no odor and no need for surgical debridement today. The irrigating vacuum dressing was replaced. Unfortunately, the gynecologists were unable to see any tissue to biopsy yesterday. However, with her medical issues and renal failure and extremely poor overall condition, oncology does not think that she would likely tolerate chemotherapy anyway. Chemotherapy would be palliative in any case. They recommend hospice and I think this is probably the best available option at this time. Since the patient is not having any pain and is not septic from her heel wound, I would favor continued palliative dressing changes for this as well, rather than proceeding with a below-knee amputation which would cause her significant pain and might not heal with her anasarca. I will see her again with the wound care team on Saturday if she is still an inpatient. She will need VAC dressings to her heel if she is discharged on hospice for quality of life issues; both to minimize dressing changes and to prevent further desiccation and tissue damage that would necessitate amputation. Surgery Progress Note: Obj - Vital signs Vital signs: Vital Signs - Most Recent Temp Pulse Resp BP Pulse Ox 98.4 F 79 16 138/75 96 09/30/19 11:03 09/30/19 11:03 09/30/19 11:03 09/30/19 11:03 09/30/19 11:03 Surgery Progress Note: Results - Labs Result Diagrams: 09/30/19 04:00 09/30/19 04:00 Lab results: Laboratory Results - last 24 hr 09/30/19 09/30/19 09/30/19 04:00 04:00 04:00 WBC 8.5 RBC 3.22 L Hgb 10.0 L Hct 31.0 L MCV 96.2 MCH 31.1 H MCHC 32.3 RDW 12.9 Plt Count 247 MPV 7.8 Neutrophils % 76.8 H Lymphocytes % 18.3 L Monocytes % 3.8 Eosinophils % 1.0 Basophils % 0.0 Neutrophils # 6.6 H Lymphocytes # 1.6 Monocytes # 0.3 Eosinophils # 0.1 Basophils # 0.0 Sodium 141 Potassium 4.1 Chloride 107 Carbon Dioxide 21 L Anion Gap 17 BUN 38 H Creatinine 3.51 H Estimated GFR (MDRD) 15 BUN/Creatinine Ratio 10.83 Glucose 88 Calcium 8.9 Phosphorus 3.7 Albumin 3.4 CA 125 (MARCE) 103.5 H Random Vancomycin 09/30/19 04:00 WBC RBC Hgb Hct MCV MCH MCHC RDW Plt Count MPV Neutrophils % Lymphocytes % Monocytes % Eosinophils % Basophils % Neutrophils # Lymphocytes # Monocytes # Eosinophils # Basophils # Sodium Potassium Chloride Carbon Dioxide Anion Gap BUN Creatinine Estimated GFR (MDRD) BUN/Creatinine Ratio Glucose Calcium Phosphorus Albumin CA 125 (MARCE) Random Vancomycin 19.6
[2019-09-30] MEDS: Metoprolol Tartrate 25 MG TAB PO SCH (20:33)
[2019-09-30] MEDS: Saccharomyces boulardii 250 MG CAP PO SCH (20:33)
[2019-10-01 04:11] LABS: #Eosinphils 0.1 thou/uL (0.0-0.7); #Lymphocytes 1.1 thou/uL (1.20-3.40); #Monocytes 0.3 thou/uL (0.11-0.59); #Neutrophils 4.8 thou/uL (1.40-6.50); %Basophils 0.2 % (0.0-1.0); %Eosinophils 1.8 % (0.0-10.0); %Lymphocytes 16.8 % (21.0-51.0); %Neutrophils 76.3 % (42.0-75.0); Hemoglobin 9.4 g/dL (12.0-16.0); Mean Corpuscular HGB CONC 30.4 g/dL (32.0-36.0); Mean Corpuscular Hemoglobin 29.9 pg (27.0-31.0); Mean Corpuscular Volume 98.3 fL (78.0-98.0); Mean Platelet Volume 8.3 fL (7.4-10.4); Platelet Count 243 thou/uL (130-400); RBC Distribution Width 13.1 % (11.5-14.5); Red Blood Cell (RBC) Count 3.12 mill/uL (4.20-5.40); White Blood Cell (WBC) Count 6.3 thou/uL (4.8-10.8)
[2019-10-01 04:29] LABS: Albumin 3.2 g/dL (3.4-4.8); Anion Gap 16 mmol/L (10-20); BUN (Urea Nitrogen) 36 mg/dL (9.8-20.1); BUN/Creatinine Ratio 10.88; Calc. Creatinine Clearance 13 mL/min (70-130); Calcium 9.2 mg/dL (7.8-10.44); Carbon Dioxide 21 mmol/L (23-31); Chloride 109 mmol/L (98-107); Estimated GFR-MDRD 16; Glucose 79 mg/dL (83-110); Phosphorus 3.3 mg/dL (2.3-4.7); Potassium 4.2 mmol/L (3.5-5.1); Sodium 142 mmol/L (136-145)
[2019-10-01] MEDS: Calcium Carbonate 600 MG + Vit D TAB PO SCH ×3 (08:14→20:35)
[2019-10-01] MEDS: Metoprolol Tartrate 25 MG TAB PO SCH ×2 (08:14→20:35)
[2019-10-01] MEDS: Amlodipine 10 MG TAB PO SCH (08:15)
[2019-10-01 09:44] LABS: Vancomycin, Random 17.4 ug/mL (See Comment)
[2019-10-01] MEDS: Cefepime 1 GM in Sodium Chloride 0.9% 100 ML IVPB SCH (09:47)
--- NOTE | 2019-10-01 10:14 | PRG ---
DATE OF SERVICE: 10/01/2019 SERVICE: Nephrology. SUBJECTIVE: An 84-year-old female seen in followup for acute renal failure superimposed on baseline CKD. The patient is more confused today. OBJECTIVE: VITAL SIGNS: Temperature 97.2, pulse 89, respiratory rate 16, SpO2 of 99% on room air, and blood pressure 137/83. I and O in the last 24 hours showed total intake of 1190 with total output of 1650. GENERAL: Chronically ill-looking female, in no obvious distress. HEENT: Normocephalic and atraumatic. Oral mucosa is moist. CARDIOVASCULAR: Regular rhythm and rate with normal heart sounds 1 and 2. RESPIRATORY: Good air entry bilaterally with no obvious crackle or rhonchi or use of accessory muscles. GI: Full, soft, nondistended, and nontender with normal bowel sounds. UROGENITAL: Sauceda catheter is in place, draining some bloody tinged urine. MUSCULOSKELETAL: Atrophy, stroke, wasting of upper body noted. Moderate bilateral leg edema and dressing of right ankle and foot noted as well. PACKAGING OPERATOR: Drowsy, but easily arousable. Oriented to person. Moves all extremities. DIAGNOSTIC DATA: CBC showed WBC count of 6.3, hemoglobin of 9.4, platelet of 243. Chemistry showed sodium 142, potassium 4.2, chloride 109, CO2 of 21, BUN 36, creatinine 3.3, glucose 79, calcium is 9.2, phosphorus 3.3, and albumin 3.2. ASSESSMENT: 1. Acute renal failure: Due to volume depletion and obstructive uropathy. Creatinine is improved with IV fluid. Still trending down. The patient is status post bilateral stent placement. 2. Obstructive uropathy with bilateral hydronephrosis, status post bilateral stent placement. 3. Presumed metastatic cancer of unclear primary. 4. Protein-calorie malnutrition. 5. Metabolic acidosis: Improved with alkali therapy. 6. Hypoalbuminemia. 7. Chronic bilateral leg edema. PLAN: We will continue supportive care. We will monitor intake and output closely. Considering the patient's condition and metastatic disease and the patient's inability to tolerate aggressive evaluation, palliative/comfort care/hospice care will be the best for this patient. The patient can be discharged, however, from Nephrology point of view to follow up in the outpatient if desired in 3 to 4 weeks with repeat labs. Job ID: [id number]
[2019-10-01] MEDS ORDERED: Vancomycin 1 GM in Premix Bag 1 BAG IVPB SCH (11:00)
[2019-10-01] MEDS ORDERED: Vancomycin HCl 250 MG in Sodium Chloride 0.9% 100 ML IVPB SCH (11:00)
[2019-10-01 14:01] VITALS: BMI 25.9
--- NOTE | 2019-10-01 16:51 | PDOC.HOSPP ---
- Subjective Encounter Date: 10/01/19 Encounter Time: 09:30 Subjective: Patient seen and examined for MILTON. No new complaints. No overnight events - Objective Vital Signs & Weight: Vital Signs (12 hours) Temp Pulse Resp BP Pulse Ox 10/01/19 15:50 98.5 F 98 18 126/94 H 99 10/01/19 11:26 98.5 F 87 18 132/80 96 10/01/19 08:10 97.2 F L 89 16 137/83 99 Weight Admit Weight 156 lb 4.8 oz Weight 146 lb 9.6 oz I&O: 09/30/19 10/01/19 10/02/19 06:59 06:59 06:59 Intake Total 480 1190 Output Total 1350 1650 Balance -870 -460 Result Diagrams: 10/01/19 03:45 10/01/19 03:45 EKG Reviewed by me: Yes (Tele SR) Hospitalist ROS - Review of Systems Respiratory: denies: cough, dry, shortness of breath, hemoptysis, SOB with excertion, pleuritic pain, sputum, wheezing, other Cardiovascular: denies: chest pain, palpitations, orthopnea, paroxysmal noc. dyspnea, edema, light headedness, other - Medication Medications: Active Medications Generic Name Dose Route Start Last Admin Trade Name Freq PRN Reason Stop Dose Admin Hydrocodone Bitart/Acetaminophen 1 tab 09/25/19 15:52 09/28/19 11:55 [place] 5/325 PO 1 tab Q4H PRN Administration Moderate Pain (4-6) Hydrocodone Bitart/Acetaminophen 2 tab 09/25/19 15:52 09/30/19 08:56 [place] 5/325 PO 2 tab Q4H PRN Administration Severe Pain (7-10) Amlodipine Besylate 10 mg 09/26/19 09:00 10/01/19 08:15 Norvasc PO 10 mg DAILY GEN Administration Calcium/Vitamin D 1 tab 09/27/19 15:00 10/01/19 15:58 Caltr[place] 600 + Vit D PO 1 tab TID GEN Administration Cefepime HCl 1 gm/ Sodium 100 mls @ 200 mls/hr 09/27/19 10:00 10/01/19 09:47 Chloride IVPB 100 mls Q24H GEN Administration Metoprolol Tartrate 12.5 mg 09/30/19 21:00 10/01/19 08:14 Lopressor PO 12.5 mg BID GEN Administration Saccharomyces Boulardii 250 mg 09/28/19 21:00 09/30/19 20:33 Florastor PO 250 mg HS GEN Administration Sodium Chloride 10 ml 09/26/19 09:00 10/01/19 08:15 Flush - Normal Saline IVF 10 ml Q12HR GEN Administration - Exam General Appearance: NAD Neck: supple, no JVD Heart: no gallops, no rubs Respiratory: no wheezes, no ronchi Gastrointestinal: non-tender, non-distended, normal bowel sounds Extremities: no cyanosis Extremities - other findings: B/L LE wound dressing Hosp A/P - Plan plan discussed w/ family (son - Peyman) Infected heel ulcer r/o Osteomyelitis -on IV Vancomycin/Cefepime MILTON on CKD 3 due to obstructive uropathy/Anasarca -improving -s/p ureteral stent Anemia prob due to renal insuf -s/p 1 unit PRBC Multiple abd/pelvic masses - no further w/u per family Metabolic acidosis HTN Hypokalemia Hypomagnesemia GERD h/o Cervical CA PVD DNR PLAN: Case d/w ID - Will need Cipro/Flagyl at dc Cont wound care/vac AM labs Await SNF eval - stable for dc No Lovenox due to Anemia T/F to medical
--- NOTE | 2019-10-01 18:13 | CON ---
DATE OF CONSULTATION: 10/01/2019 REASON FOR CONSULTATION: Right heel ulcer with necrosis status post debridement, associated with other abnormalities. HISTORY OF PRESENT ILLNESS: An 84-year-old with history of hypertension and prior cervical cancer, presumably in remission, who was admitted because of chronic right heel ulcer with necrosis, reportedly still ambulatory and without any claudication. Evidently, the reliability of her report is limited due to cognitive impairment. On arrival, the patient's blood pressure 118/79, pulse 87, temperature 97.9, and O2 saturation 100 on room air. In the exam, the patient was in moderate distress and mouth was normal. Lungs sounds were clear. Heart examination normal. The abdomen was soft and nontender. She had the ulcerated area with necrosis in the right heel region. Dr. Weir did debridement and looks like the process extends to the heel bone. In the meantime, she had noticeable decrease in renal function. Her baseline creatinine ranges from 1.6 to 2.1 in the past, and on admission, it was 4.73. Imaging of the kidneys was consistent with severe right hydronephrosis. She had a stent placed on that side. An abdomen and pelvis CT revealed a bilateral hydronephrosis, reportedly left worse than right, representing obstructive uropathy with atrophy of the right kidney, with multiple neoplastic tumor masses in the mid and lower abdominal cavity, likely the cause of the obstructive uropathy. There is anasarca noted as well, fluid-filled dilated small bowel loops in the mid and lower abdominal cavity, a 6-mm right middle lobe pulmonary nodule. The patient is being prepared for I think hospice admission according to the nurses' reports. The patient herself now is disoriented. She thought that she was in [place]. She does not seem to be in pain unless the foot is mobilized. She denies headaches. No shortness of breath. No cough. No abdominal pain. Again, her subjective report is of questionable accuracy. PAST MEDICAL HISTORY: Fairly limited, but basically hypertension and cervical cancer, which was presumably in remission. SURGICAL HISTORY: 1. There is a reported [employer] treatments in the past, probably chemotherapy. 2. Hysterectomy. 3. Appendectomy. SOCIAL HISTORY: Lives in [place]. Never smoker. CURRENT MEDICATIONS: 1. [place]. 2. Norvasc. 3. Cefepime. 4. Lopressor. 5. Vancomycin. PHYSICAL EXAMINATION: VITAL SIGNS: T-max 98.6, blood pressure 120/90, pulse 98, respirations 18, and O2 saturation 99. SKIN: With the area of debridement of the right heel, mostly devitalized tissue at the base, some exposed bone, there is surrounding skin and does not appear erythematous. She has a peripheral IV access and has a Sauceda catheter with blood with microscopic hematuria. HEENT: The ocular movements are conjugate. She has no [place] teeth remaining in place. Depapillation of tongue. NECK: Supple. LUNGS: Symmetric air entry. HEART: S1 and S2. Regular rate. ABDOMEN: Soft and not distended. EXTREMITIES: I could not feel any popliteal or dorsalis pedis pulses. She is able to move extremities, but she is diffusely weak. NEUROLOGIC: She shakes with the right hand intermittently, seems to be an intention tremor, but not to the other extremities. She is awake. She establishes eye contact, but she has quite a bit of confusional state. She kind of has perseverance in her verbal output and unable to answer questions properly. LABORATORY DATA: White cell count is at 6.3, hemoglobin 9.4, and platelets 243. Creatinine 3.31. Urine is normal. Micro with Providencia and Proteus from the heel wound both with susceptibility to Cipro. The Providencia is intermediate to levofloxacin. ASSESSMENT: 1. History of cervical cancer. 2. Peripheral vascular disease. 3. Chronic heel ulcer, right side with necrosis. 4. Bilateral hydronephrosis from likely either recrudescence of cervical cancer with metastases or a second primary in the pelvic area with obstruction of the bilateral ureters and hydronephrosis. The patient has had stents placed by Dr. Rincon. DISCUSSION: It appears the patient is going to end up in hospice care sooner or later. She does have significant peripheral vascular disease and the hopes of salvaging the right foot are probably minimal, and I think antimicrobial therapy has a limited role here. I could envision oral quinolone with Flagyl, but frankly there is a significant futility of any antimicrobial administration for this lady and it may reach a point where the risks are higher than the benefits of antimicrobial therapy. I do not think it is a major contraindication to give her a course of Cipro and Flagyl, but I think that admission to hospice care would be the primary goal at this point in time. Job ID: [id number]
[2019-10-01] MEDS: Saccharomyces boulardii 250 MG CAP PO SCH (20:35)
[2019-10-02] MEDS: Metoprolol Tartrate 25 MG TAB PO SCH ×2 (09:22→20:29)
[2019-10-02] MEDS: Calcium Carbonate 600 MG + Vit D TAB PO SCH ×3 (09:22→20:29)
[2019-10-02] MEDS: Amlodipine 10 MG TAB PO SCH (09:22)
[2019-10-02] MEDS: Cefepime 1 GM in Sodium Chloride 0.9% 100 ML IVPB SCH (09:29)
--- NOTE | 2019-10-02 15:17 | PDOC.GSPN ---
Surgery Progress Note: Subj - Subjective Narrative: Patient is feeling okay. She declined any pain medication for her dressing change. Her heel wound looks fairly good. She has areas especially overlying the calcaneus and along the periphery of the wound which are of questionable viability but she also has buds of granulation tissue starting to form throughout the wound. The patient was resistant to any debridement at the bedside today so we will just continue to treat her with dressing changes for comfort. She can follow-up in my clinic in a few weeks for wound check. I am signing off for now. Surgery Progress Note: Obj - Vital signs Vital signs: Vital Signs - Most Recent Temp Pulse Resp BP Pulse Ox 98.3 F 95 20 169/84 H 98 10/02/19 11:53 10/02/19 11:53 10/02/19 11:53 10/02/19 11:53 10/02/19 11:53 Surgery Progress Note: Results - Labs Result Diagrams: 10/01/19 03:45 10/01/19 03:45
[2019-10-02 15:26] LABS: Albumin 3.1 g/dL (3.4-4.8); Anion Gap 23 mmol/L (10-20); BUN (Urea Nitrogen) 42 mg/dL (9.8-20.1); BUN/Creatinine Ratio 12.84; Calc. Creatinine Clearance 14 mL/min (70-130); Calcium 9.1 mg/dL (7.8-10.44); Carbon Dioxide 14 mmol/L (23-31); Chloride 114 mmol/L (98-107); Estimated GFR-MDRD 16; Glucose 74 mg/dL (83-110); Phosphorus 3.8 mg/dL (2.3-4.7); Potassium 5.9 mmol/L (3.5-5.1); Sodium 145 mmol/L (136-145)
[2019-10-02 17:04] LABS: Vancomycin, Random 15.7 ug/mL (See Comment)
[2019-10-02] MEDS ORDERED: Vancomycin HCl 250 MG in Sodium Chloride 0.9% 100 ML IVPB SCH (17:15)
--- NOTE | 2019-10-02 17:21 | PDOC.HOSPP ---
- Subjective Encounter Date: 10/02/19 Encounter Time: 17:20 Subjective: Patient seen and examined for multiple medical issues. Somnolent. Poor appetite. No new complaints. No overnight events - Objective Vital Signs & Weight: Vital Signs (12 hours) Temp Pulse Resp BP Pulse Ox 10/02/19 11:53 98.3 F 95 20 169/84 H 98 10/02/19 08:00 96 10/02/19 07:45 98.0 F 95 20 144/78 H 96 Weight Admit Weight 156 lb 4.8 oz Weight 146 lb 9.6 oz I&O: 10/01/19 10/02/19 10/03/19 06:59 06:59 06:59 Intake Total 1190 1170 Output Total 1650 1100 Balance -460 70 Result Diagrams: 10/01/19 03:45 10/02/19 14:26 Hospitalist ROS - Review of Systems Respiratory: denies: cough, dry, shortness of breath, hemoptysis, SOB with excertion, pleuritic pain, sputum, wheezing, other Cardiovascular: denies: chest pain, palpitations, orthopnea, paroxysmal noc. dyspnea, edema, light headedness, other - Medication Medications: Active Medications Generic Name Dose Route Start Last Admin Trade Name Freq PRN Reason Stop Dose Admin Hydrocodone Bitart/Acetaminophen 1 tab 09/25/19 15:52 09/28/19 11:55 [place] 5/325 PO 1 tab Q4H PRN Administration Moderate Pain (4-6) Hydrocodone Bitart/Acetaminophen 2 tab 09/25/19 15:52 09/30/19 08:56 [place] 5/325 PO 2 tab Q4H PRN Administration Severe Pain (7-10) Amlodipine Besylate 10 mg 09/26/19 09:00 10/02/19 09:22 Norvasc PO Not Given DAILY GEN Calcium/Vitamin D 1 tab 09/27/19 15:00 10/02/19 15:48 Caltrate 600 + Vit D PO Not Given TID GEN Cefepime HCl 1 gm/ Sodium 100 mls @ 200 mls/hr 09/27/19 10:00 10/02/19 09:29 Chloride IVPB 100 mls Q24H GEN Administration Lactulose 10 gm 10/02/19 16:15 10/02/19 17:12 Lactulose PO 10/02/19 18:15 Not Given NOW [facility] Metoprolol Tartrate 12.5 mg 09/30/19 21:00 10/02/19 09:22 Lopressor PO Not Given BID GEN Saccharomyces Boulardii 250 mg 09/28/19 21:00 10/01/19 20:35 Florastor PO 250 mg HS GEN Administration Sodium Chloride 10 ml 09/26/19 09:00 10/02/19 09:24 Flush - Normal Saline IVF 10 ml Q12HR GEN Administration Sodium Polystyrene Sulfonate 15 gm 10/02/19 16:15 10/02/19 17:12 Kayexalate Oral Susp 15 Gm/60 Ml PO 10/02/19 18:15 Not Given NOW GEN - Exam General Appearance: ill appearing Heart: RRR, no gallops Respiratory: no wheezes, no ronchi Gastrointestinal: non-tender, non-distended, normal bowel sounds Extremities: no cyanosis Neurological: no new deficit Hosp A/P - Plan DVT proph w/SCDs Infected heel ulcer r/o Osteomyelitis -on IV Vancomycin/Cefepime MILTON on CKD 3 due to obstructive uropathy/Anasarca/Hyperkalemia/Metabolic acidosis -improving -s/p ureteral stent Anemia prob due to renal insuf -s/p 1 unit PRBC Multiple abd/pelvic masses - no further w/u per family HTN Hypokalemia Hypomagnesemia GERD h/o Cervical CA PVD DNR PLAN: Start IVF with bicarb 1 dose of Kayexalate I d/w Nephrology Change Atbx to Cipro/Flagyl at dc for 6 wks Cont wound care/vac Await SNF eval - stable for dc AM labs No Lovenox due to Anemia
--- NOTE | 2019-10-02 19:01 | PRG ---
DATE OF SERVICE: 10/02/2019 SERVICE: Nephrology. SUBJECTIVE: An 84-year-old female seen in followup for acute kidney injury and hyperkalemia. The patient is somnolent today. She was supposed to have gone on hospice care, but that has not been finalized. I was contacted earlier on by primary attending about hyperkalemia. The patient was unable to provide any significant history. Oral intake has reduced in the last day or so. OBJECTIVE: VITAL SIGNS: Temperature 97.7, pulse 93, respiratory rate 18, SpO2 of 100% on room air, and blood pressure is 154/83. GENERAL: Chronically ill-looking elderly woman, in no obvious distress. Intake and output in the last 24 hours showed total intake of 1170 with total output of 1100. HEENT: Normocephalic and atraumatic. Oral mucosa is dry. CARDIOVASCULAR: Regular rhythm and rate with normal heart sounds 1 and 2. RESPIRATORY: Fair air entry bilaterally with some transmitted breath sounds, but no obvious crackle or rhonchi or use of accessory muscles. GI: Full, soft, nondistended with normal bowel sounds. UROGENITAL: Sauceda catheter is in place, draining some urine. MUSCULOSKELETAL/EXTREMITIES: Question of upper extremities with no edema noted. Bilateral moderate leg edema with right foot and ankle covered with dressing. HRBP. The patient is a lethargic, confused. DIAGNOSTIC DATA: There is no CBC today. Chemistry showed sodium 145, potassium 5.9, chloride 114, CO2 of 14, BUN 42, creatinine 3.27, glucose 74, and calcium 9.1. Phosphorus 3.8. Albumin 3.1. ASSESSMENT: 1. Hyperkalemia: Due to potassium shift related to worsening metabolic acidosis. 2. Worsening azotemia: Due to poor oral intake and increased losses. 3. Acute metabolic acidosis with high anion gap and hyperchloremic. 4. Acute metabolic encephalopathy: Multifactorial from electrolyte derangement, acid-base derangement, as well as recent anesthetic. 5. Acute kidney injury due to hemodynamic factors as well as obstructive uropathy. 6. Metastatic cancer of unclear primary. The patient has multiple abdominal masses. 7. Hypertension: Control is fair. PLAN: We will give dextrose with insulin as well as sodium bicarbonate infusion and Kayexalate. We will recheck BMP later today to confirm improvement of potassium. We will plan on treating for that if needed. DISPOSITION: Given overall condition of the patient, hospice care still remained the most appropriate line of action for this patient. We will defer to primary attending for further treatment. Job ID: [id number]
[2019-10-02] MEDS: Sodium Bicarbonate 150 MEQ in Dextrose 5% in Water 1,000 ML IV SCH (19:30)
[2019-10-02] MEDS: Saccharomyces boulardii 250 MG CAP PO SCH (20:29)
[2019-10-03] MEDS: Sodium Bicarbonate 150 MEQ in Dextrose 5% in Water 1,000 ML IV SCH ×2 (05:39→13:10)
[2019-10-03] MEDS: Amlodipine 10 MG TAB PO SCH (08:51)
[2019-10-03] MEDS: Metoprolol Tartrate 25 MG TAB PO SCH ×2 (08:51→20:15)
[2019-10-03] MEDS: Calcium Carbonate 600 MG + Vit D TAB PO SCH ×3 (08:51→20:16)
[2019-10-03] MEDS ORDERED: Ergocalciferol 1.25 MG(50,000 UNITS) CAP PO SCH (09:00)
[2019-10-03 09:05] LABS: #Eosinphils 0.1 thou/uL (0.0-0.7); #Lymphocytes 1.4 thou/uL (1.20-3.40); #Monocytes 0.2 thou/uL (0.11-0.59); #Neutrophils 4.2 thou/uL (1.40-6.50); %Basophils 0.7 % (0.0-1.0); %Eosinophils 1.9 % (0.0-10.0); %Lymphocytes 23.7 % (21.0-51.0); %Neutrophils 69.8 % (42.0-75.0); Hemoglobin 11.9 g/dL (12.0-16.0); Mean Corpuscular HGB CONC 30.7 g/dL (32.0-36.0); Mean Corpuscular Volume 97.8 fL (78.0-98.0); Mean Platelet Volume 8.2 fL (7.4-10.4); Platelet Count 245 thou/uL (130-400); RBC Distribution Width 12.8 % (11.5-14.5); Red Blood Cell (RBC) Count 3.96 mill/uL (4.20-5.40)
[2019-10-03 09:12] LABS: Albumin 3.6 g/dL (3.4-4.8); Anion Gap 17 mmol/L (10-20); BUN (Urea Nitrogen) 38 mg/dL (9.8-20.1); BUN/Creatinine Ratio 11.84; Calc. Creatinine Clearance 14 mL/min (70-130); Calcium 9.4 mg/dL (7.8-10.44); Carbon Dioxide 24 mmol/L (23-31); Chloride 107 mmol/L (98-107); Estimated GFR-MDRD 17; Glucose 105 mg/dL (83-110); Phosphorus 2.9 mg/dL (2.3-4.7); Potassium 4.6 mmol/L (3.5-5.1); Sodium 143 mmol/L (136-145)
[2019-10-03] MEDS: Cefepime 1 GM in Sodium Chloride 0.9% 100 ML IVPB SCH (09:57)
--- NOTE | 2019-10-03 12:55 | PDOC.HOSPP ---
- Subjective Encounter Date: 10/03/19 Encounter Time: 12:00 non-verbal Subjective: Patient seen and examined for MILTON/Abd masses. Poor appetite. No overnight events - Objective Vital Signs & Weight: Vital Signs (12 hours) Temp Pulse Resp BP Pulse Ox 10/03/19 08:51 93 10/03/19 08:00 99 10/03/19 07:36 97.6 F 93 20 141/96 H 99 10/03/19 04:27 97.6 F 93 16 140/87 100 Weight Admit Weight 156 lb 4.8 oz Weight 146 lb 9.6 oz I&O: 10/02/19 10/03/19 10/04/19 06:59 06:59 06:59 Intake Total 1170 1200 Output Total 1100 850 Balance 70 350 Result Diagrams: 10/03/19 08:38 10/03/19 08:38 Hospitalist ROS - Review of Systems ROS unobtainable: due to mental status - Medication Medications: Active Medications Generic Name Dose Route Start Last Admin Trade Name Freq PRN Reason Stop Dose Admin Hydrocodone Bitart/Acetaminophen 1 tab 09/25/19 15:52 09/28/19 11:55 [place] 5/325 PO 1 tab Q4H PRN Administration Moderate Pain (4-6) Hydrocodone Bitart/Acetaminophen 2 tab 09/25/19 15:52 09/30/19 08:56 [place] 5/325 PO 2 tab Q4H PRN Administration Severe Pain (7-10) Amlodipine Besylate 10 mg 09/26/19 09:00 10/03/19 08:51 Norvasc PO Not Given DAILY [facility] Calcium/Vitamin D 1 tab 09/27/19 15:00 10/03/19 08:51 Caltrate 600 + Vit D PO Not Given TID GEN Ergocalciferol 1.25 mg 10/03/19 09:00 10/03/19 08:51 Drisdol PO Not Given Q7DAYS GEN Cefepime HCl 1 gm/ Sodium 100 mls @ 200 mls/hr 09/27/19 10:00 10/03/19 09:57 Chloride IVPB 100 mls Q24H GEN Administration Metoprolol Tartrate 12.5 mg 09/30/19 21:00 10/03/19 08:51 Lopressor PO Not Given BID GEN Saccharomyces Boulardii 250 mg 09/28/19 21:00 10/02/19 20:29 Florastor PO Not Given HS GEN Sodium Chloride 10 ml 09/26/19 09:00 10/03/19 08:52 Flush - Normal Saline IVF Not Given Q12HR GEN - Exam General Appearance: ill appearing Heart: RRR, no gallops Respiratory: no wheezes, no rales Gastrointestinal: soft, no guarding, no rigidity Extremities: no cyanosis Hosp A/P - Plan beebe catheter, DVT proph w/SCDs Infected heel ulcer r/o Osteomyelitis -on IV Vancomycin/Cefepime MILTON on 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 Will proceed with hospice - prob inpatient hospice.
--- NOTE | 2019-10-03 14:32 | PRG ---
DATE OF SERVICE: 10/03/2019 SUBJECTIVE: Ms. Alfred still a little bit confused. She appears chronically ill, but in no acute distress. The patient has no dyspnea. No abdominal pain. OBJECTIVE: VITAL SIGNS: Her temperature has been within normal range, O2 saturations are 99 on room air, pulse 93, BP 140/96. GENERAL: Appears chronically ill. LUNGS: With inspiratory crackles. HEART: S1 and S2, regular rate. ABDOMEN: Soft, moderate distention, but not tender. The patient has an indwelling Sauceda catheter. She has negative pressure dressing in the left heel. LABORATORY DATA: White cell count 6.0, hemoglobin 11.9, platelets 245 with normal differential, neutrophil percentage is down from 76 to 69, and creatinine is down to 3.21 from previous levels and microbiology with Providencia and Proteus. ASSESSMENT AND DISCUSSION: History of cervical cancer, peripheral vascular disease, chronic heel ulcer, necrotic, right side; bilateral hydronephrosis, likely from malignancy in the pelvic area, unknown primary or maybe this is a recurrence of the cervical cancer with local METS. The patient has had stents placed by Urology and now I think the plan is to transition to oral antimicrobial therapy with Cipro and Flagyl, although the recognized futility of this intervention is noted she does have peripheral vascular disease, but I do not think she is eligible for any other intervention at this point in time and hospice care in the near future. Job ID: [id number] MTDD
--- NOTE | 2019-10-03 17:44 | CT ---
CT HEAD WITHOUT CONTRAST: 10/03/19 INDICATIONS: Mental status change. No comparison. The ventricles have normal size and position. Moderate chronic ischemic white matter changes are note d. There is no evidence of intracranial mass, hemorrhage or infarct. The paranasal sinuses are clear. IMPRESSION: Chronic ischemic changes. No acute process identified. POS: AGW
[2019-10-03 18:52] LABS: Vancomycin, Random 15.3 ug/mL (See Comment)
[2019-10-03] MEDS: Saccharomyces boulardii 250 MG CAP PO SCH (20:16)
[2019-10-03] MEDS ORDERED: Vancomycin HCl 250 MG in Sodium Chloride 0.9% 100 ML IVPB SCH (21:30)
[2019-10-04] MEDS: Sodium Bicarbonate 150 MEQ in Dextrose 5% in Water 1,000 ML IV SCH (01:13)
[2019-10-04 05:51] LABS: #Eosinphils 0.1 thou/uL (0.0-0.7); #Lymphocytes 1.4 thou/uL (1.20-3.40); #Monocytes 0.4 thou/uL (0.11-0.59); #Neutrophils 5.1 thou/uL (1.40-6.50); %Basophils 0.2 % (0.0-1.0); %Eosinophils 1.7 % (0.0-10.0); %Lymphocytes 19.3 % (21.0-51.0); %Monocytes 5.6 % (0.0-10.0); %Neutrophils 73.1 % (42.0-75.0); Hemoglobin 10.9 g/dL (12.0-16.0); Mean Corpuscular HGB CONC 31.7 g/dL (32.0-36.0); Mean Corpuscular Hemoglobin 30.5 pg (27.0-31.0); Mean Corpuscular Volume 96.2 fL (78.0-98.0); Mean Platelet Volume 8.6 fL (7.4-10.4); Platelet Count 206 thou/uL (130-400); RBC Distribution Width 12.9 % (11.5-14.5); Red Blood Cell (RBC) Count 3.58 mill/uL (4.20-5.40)
[2019-10-04 06:16] LABS: Albumin 3.2 g/dL (3.4-4.8); Anion Gap 15 mmol/L (10-20); BUN (Urea Nitrogen) 34 mg/dL (9.8-20.1); Calc. Creatinine Clearance 15 mL/min (70-130); Calcium 8.9 mg/dL (7.8-10.44); Carbon Dioxide 24 mmol/L (23-31); Chloride 108 mmol/L (98-107); Estimated GFR-MDRD 19; Glucose 92 mg/dL (83-110); Phosphorus 2.5 mg/dL (2.3-4.7); Potassium 4.1 mmol/L (3.5-5.1); Sodium 143 mmol/L (136-145)
[2019-10-04] MEDS: Amlodipine 10 MG TAB PO SCH (08:20)
[2019-10-04] MEDS: Calcium Carbonate 600 MG + Vit D TAB PO SCH ×3 (08:20→19:49)
[2019-10-04] MEDS: Metoprolol Tartrate 25 MG TAB PO SCH ×2 (08:20→19:48)
[2019-10-04] MEDS: Cefepime 1 GM in Sodium Chloride 0.9% 100 ML IVPB SCH (09:08)
[2019-10-04] MEDS ORDERED: Sodium Bicarbonate 150 MEQ in Dextrose 5% in Water 1,000 ML IV SCH (12:15)
[2019-10-04] MEDS ORDERED: Multivit, Adult Inj 10 ML VIAL IV SCH (12:15)
[2019-10-04] MEDS ORDERED: Labetalol HCl 100 MG/20 ML VIAL SLOW IVP PRN (12:18)
--- NOTE | 2019-10-04 12:21 | PDOC.HOSPP ---
- Subjective Encounter Date: 10/04/19 Encounter Time: 10:30 Subjective: Patient seen and examined for MILTON with foot infection. Mentation improving. Poor appetite. No new complaints. No overnight events - Objective Vital Signs & Weight: Vital Signs (12 hours) Temp Pulse Resp BP Pulse Ox 10/04/19 08:20 96 10/04/19 08:00 99 10/04/19 07:34 97.9 F 96 18 151/74 H 100 Weight Admit Weight 156 lb 4.8 oz Weight 146 lb 9.6 oz I&O: 10/03/19 10/04/19 10/05/19 06:59 06:59 06:59 Intake Total 1200 1825 Output Total 850 1675 Balance 350 150 Result Diagrams: 10/04/19 05:42 10/04/19 05:42 Hospitalist ROS - Review of Systems Respiratory: denies: cough, dry, shortness of breath, hemoptysis, SOB with excertion, pleuritic pain, sputum, wheezing, other Cardiovascular: denies: chest pain, palpitations, orthopnea, paroxysmal noc. dyspnea, edema, light headedness, other - Medication Medications: Active Medications Generic Name Dose Route Start Last Admin Trade Name Freq PRN Reason Stop Dose Admin Hydrocodone Bitart/Acetaminophen 1 tab 09/25/19 15:52 09/28/19 11:55 [place] 5/325 PO 1 tab Q4H PRN Administration Moderate Pain (4-6) Hydrocodone Bitart/Acetaminophen 2 tab 09/25/19 15:52 09/30/19 08:56 [place] 5/325 PO 2 tab Q4H PRN Administration Severe Pain (7-10) Amlodipine Besylate 10 mg 09/26/19 09:00 10/04/19 08:20 Norvasc PO Not Given DAILY GEN Calcium/Vitamin D 1 tab 09/27/19 15:00 10/04/19 08:20 Caltrate 600 + Vit D PO Not Given TID GEN Ergocalciferol 1.25 mg 10/03/19 09:00 10/03/19 08:51 Drisdol PO Not Given Q7DAYS GEN Cefepime HCl 1 gm/ Sodium 100 mls @ 200 mls/hr 09/27/19 10:00 10/04/19 09:08 Chloride IVPB 100 mls Q24H GEN Administration Metoprolol Tartrate 12.5 mg 09/30/19 21:00 10/04/19 08:20 Lopressor PO Not Given BID GEN Saccharomyces Boulardii 250 mg 09/28/19 21:00 10/03/19 20:16 Florastor PO Not Given HS GEN Sodium Chloride 10 ml 09/26/19 09:00 10/04/19 08:20 Flush - Normal Saline IVF Not Given Q12HR GEN - Exam General Appearance: ill appearing Heart: RRR, no gallops Respiratory: no wheezes, no ronchi Gastrointestinal: non-tender, no guarding, no rigidity Extremities: no cyanosis Neurological: no new deficit Hosp A/P - Plan DVT proph w/SCDs Infected heel ulcer r/o Osteomyelitis -on IV Vancomycin/Cefepime MILTON on 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
[2019-10-04] MEDS ORDERED: [UNRECOGNIZED DRUG - REMARK] IV SCH ×2 (13:00)
[2019-10-04] MEDS: Amino Acids 4.25 %/Dextrose 5% 1,000 ML IV SCH (17:50)
[2019-10-04] MEDS: Saccharomyces boulardii 250 MG CAP PO SCH (19:49)
[2019-10-05 03:36] LABS: Vancomycin, Random 16.6 ug/mL (See Comment)
[2019-10-05] MEDS ORDERED: Vancomycin HCl 250 MG in Sodium Chloride 0.9% 100 ML IVPB SCH (04:00)
[2019-10-05] MEDS: Calcium Carbonate 600 MG + Vit D TAB PO SCH ×3 (08:47→21:46)
[2019-10-05] MEDS: Amlodipine 10 MG TAB PO SCH (08:47)
[2019-10-05] MEDS: Metoprolol Tartrate 25 MG TAB PO SCH ×2 (08:47→21:46)
[2019-10-05] MEDS: Cefepime 1 GM in Sodium Chloride 0.9% 100 ML IVPB SCH (08:48)
[2019-10-05] MEDS: Amino Acids 4.25 %/Dextrose 5% 1,000 ML IV SCH ×2 (08:49→15:32)
--- NOTE | 2019-10-05 10:13 | PDOC.HOSPP ---
- Subjective Encounter Date: 10/05/19 Encounter Time: 08:30 non-verbal Subjective: Patient seen and examined for MILTON. No overnight events - Objective Vital Signs & Weight: Vital Signs (12 hours) Temp Pulse Resp BP Pulse Ox 10/05/19 07:37 97.9 F 100 20 149/116 H 100 Weight Admit Weight 156 lb 4.8 oz Weight 146 lb 9.6 oz I&O: 10/04/19 10/05/19 10/06/19 06:59 06:59 06:59 Intake Total 1825 1725 Output Total 1675 2500 Balance 150 -775 Result Diagrams: 10/06/19 04:27 10/06/19 04:27 Hospitalist ROS - Review of Systems Respiratory: denies: cough, dry, shortness of breath, hemoptysis, SOB with excertion, pleuritic pain, sputum, wheezing, other Cardiovascular: denies: chest pain, palpitations, orthopnea, paroxysmal noc. dyspnea, edema, light headedness, other - Medication Medications: Active Medications Generic Name Dose Route Start Last Admin Trade Name Freq PRN Reason Stop Dose Admin Hydrocodone Bitart/Acetaminophen 1 tab 09/25/19 15:52 09/28/19 11:55 [place] 5/325 PO 1 tab Q4H PRN Administration Moderate Pain (4-6) Hydrocodone Bitart/Acetaminophen 2 tab 09/25/19 15:52 09/30/19 08:56 [place] 5/325 PO 2 tab Q4H PRN Administration Severe Pain (7-10) Amlodipine Besylate 10 mg 09/26/19 09:00 10/05/19 08:47 Norvasc PO Not Given DAILY GEN Calcium/Vitamin D 1 tab 09/27/19 15:00 10/05/19 08:47 Caltrate 600 + Vit D PO Not Given TID GEN Ergocalciferol 1.25 mg 10/03/19 09:00 10/03/19 08:51 Drisdol PO Not Given Q7DAYS GEN Cefepime HCl 1 gm/ Sodium 100 mls @ 200 mls/hr 09/27/19 10:00 10/05/19 08:48 Chloride IVPB 100 mls Q24H GEN Administration Amino Acids/Dextrose 1,000 mls @ 75 mls/hr 10/04/19 16:00 10/05/19 08:49 Clinimix 4.25/5 IV 1,000 mls 1600 GEN Administration Metoprolol Tartrate 12.5 mg 09/30/19 21:00 10/05/19 08:47 Lopressor PO Not Given BID GEN Saccharomyces Boulardii 250 mg 09/28/19 21:00 10/04/19 19:49 Florastor PO 250 mg HS GEN Administration Sodium Chloride 10 ml 09/26/19 09:00 10/05/19 08:48 Flush - Normal Saline IVF 10 ml Q12HR GEN Administration - Exam General Appearance: NAD Heart: RRR, no gallops Respiratory: no wheezes, no ronchi Gastrointestinal: non-tender, normal bowel sounds Extremities: no cyanosis Psychiatric: somnolent Hosp A/P - Plan Infected heel ulcer r/o Osteomyelitis -on IV Vancomycin/Cefepime MILTON on 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
[2019-10-05] MEDS: Saccharomyces boulardii 250 MG CAP PO SCH (21:47)
[2019-10-06 04:42] LABS: #Eosinphils 0.1 thou/uL (0.0-0.7); #Lymphocytes 1.3 thou/uL (1.20-3.40); #Monocytes 0.2 thou/uL (0.11-0.59); #Neutrophils 4.4 thou/uL (1.40-6.50); %Basophils 0.3 % (0.0-1.0); %Eosinophils 2.3 % (0.0-10.0); %Lymphocytes 21.9 % (21.0-51.0); %Monocytes 3.4 % (0.0-10.0); %Neutrophils 72.1 % (42.0-75.0); Hemoglobin 9.1 g/dL (12.0-16.0); Mean Corpuscular HGB CONC 31.8 g/dL (32.0-36.0); Mean Corpuscular Hemoglobin 31.2 pg (27.0-31.0); Mean Corpuscular Volume 98.2 fL (78.0-98.0); Mean Platelet Volume 8.7 fL (7.4-10.4); Platelet Count 172 thou/uL (130-400); RBC Distribution Width 12.6 % (11.5-14.5); Red Blood Cell (RBC) Count 2.91 mill/uL (4.20-5.40); White Blood Cell (WBC) Count 6.1 thou/uL (4.8-10.8)
[2019-10-06 05:01] LABS: Vancomycin, Random 14.6 ug/mL (See Comment)
[2019-10-06 05:04] LABS: Albumin 3.1 g/dL (3.4-4.8); Anion Gap 12 mmol/L (10-20); BUN (Urea Nitrogen) 40 mg/dL (9.8-20.1); Calc. Creatinine Clearance 18 mL/min (70-130); Carbon Dioxide 28 mmol/L (23-31); Chloride 106 mmol/L (98-107); Estimated GFR-MDRD 22; Glucose 90 mg/dL (83-110); Phosphorus 2.1 mg/dL (2.3-4.7); Potassium 3.8 mmol/L (3.5-5.1); Sodium 142 mmol/L (136-145)
[2019-10-06] MEDS: Amlodipine 10 MG TAB PO SCH (07:55)
[2019-10-06] MEDS: Metoprolol Tartrate 25 MG TAB PO SCH (07:55)
[2019-10-06] MEDS: Calcium Carbonate 600 MG + Vit D TAB PO SCH ×2 (07:55→14:50)
[2019-10-06] MEDS ORDERED: Vancomycin HCl 500 MG in Sodium Chloride 0.9% 100 ML IVPB SCH (08:00)
[2019-10-06] MEDS: Cefepime 1 GM in Sodium Chloride 0.9% 100 ML IVPB SCH (10:01)
[2019-10-06] MEDS ORDERED: Sodium Phosphate 15 MMOL in Sodium Chloride 0.9% 250 ML 250 ML IVPB SCH (10:30)
--- NOTE | 2019-10-06 12:02 | PDOC.HOSPP ---
- Subjective Encounter Date: 10/06/19 - Objective Vital Signs & Weight: Vital Signs (12 hours) Temp Pulse Resp BP Pulse Ox 10/06/19 06:59 97.8 F 100 17 129/93 H 98 Weight Admit Weight 156 lb 4.8 oz Weight 146 lb 9.6 oz I&O: 10/05/19 10/06/19 10/07/19 06:59 06:59 06:59 Intake Total 1725 1000 Output Total 2500 2500 Balance -775 -1500 Result Diagrams: 10/06/19 04:27 10/06/19 04:27 Hospitalist ROS - Medication Medications: Active Medications Generic Name Dose Route Start Last Admin Trade Name Freq PRN Reason Stop Dose Admin Amlodipine Besylate 10 mg 09/26/19 09:00 10/06/19 07:55 Norvasc PO Not Given DAILY [facility] Calcium/Vitamin D 1 tab 09/27/19 15:00 10/06/19 07:55 Caltrate 600 + Vit D PO Not Given TID GEN Ergocalciferol 1.25 mg 10/03/19 09:00 10/03/19 08:51 Drisdol PO Not Given Q7DAYS GEN Cefepime HCl 1 gm/ Sodium 100 mls @ 200 mls/hr 09/27/19 10:00 10/06/19 10:01 Chloride IVPB 100 mls Q24H GEN Administration Amino Acids/Dextrose 1,000 mls @ 75 mls/hr 10/04/19 16:00 10/05/19 15:32 Clinimix 4.25/5 IV 1,000 mls 1600 GEN Administration Metoprolol Tartrate 12.5 mg 09/30/19 21:00 10/06/19 07:55 Lopressor PO Not Given BID GEN Saccharomyces Boulardii 250 mg 09/28/19 21:00 10/05/19 21:47 Florastor PO Not Given HS GEN Sodium Chloride 10 ml 09/26/19 09:00 10/06/19 07:56 Flush - Normal Saline IVF 10 ml Q12HR GEN Administration Hosp A/P - Plan Infected heel ulcer r/o Osteomyelitis -on IV Vancomycin/Cefepime MILTON on CKD 3 due to obstructive uropathy/Anasarca/Hyperkalemia/Metabolic acidosis -improving -s/p ureteral stent - beebe placed Anemia prob due to renal insuf -s/p 1 unit PRBC Multiple abd/pelvic masses - no further w/u per family HTN Hypokalemia Hypomagnesemia GERD h/o Cervical CA PVD DNR PLAN: Cont PPN Cont wound care with vac Await SNF placement AM labs No SQ Lovenox due to Anemia Change Atbx to Cipro/Flagyl at dc for 6 wks Add Fentanyl patch
[2019-10-06] MEDS: Amino Acids 4.25 %/Dextrose 5% 1,000 ML IV SCH (16:14)
[2019-10-06 19:11] VITALS: BP 152/105; TEMP 97.6
--- NOTE | 2019-10-07 09:12 | DIS ---
DATE OF ADMISSION: 09/25/2019 DATE OF DISCHARGE: 10/06/2019 DISCHARGE DISPOSITION: [facility]. FOLLOW UP: Followup with General Surgery and primary care physician as scheduled. CODE STATUS: Do not resuscitate. The patient was seen and examined on the day of discharge. Mentation has slightly improved. The patient continues to have poor appetite. BRIEF HOSPITAL COURSE: The patient is an 84-year-old female with hypertension and distant cervical cancer, status post chemotherapy and radiation with chronic right foot wound, presented to the hospital with worsening of the right heel wound. The patient was evaluated by her PCP, who referred the patient to the emergency room. In the emergency room, she was found to have potassium of 2.2 along with acute kidney injury with creatinine of 5.1, bicarbonate of 16. Her foot x-ray showed right foot soft tissue swelling. Please refer to the history and physical for further details. The patient was admitted to the Telemetry unit with above diagnosis. She was evaluated by General Surgery for the right heel wound. She underwent arterial Doppler that showed abnormal waveforms bilaterally, left greater than right. Velocities were relatedly low on the left when compared to the right. CT angiogram was recommended. There was a concern for possible osteomyelitis of the heel. She was placed on vancomycin and cefepime. Infectious Disease recommended transitioning to Cipro and Flagyl for 6 weeks once the patient is able to tolerate p.o. The patient was found to have significant acute kidney injury. A CT scan of the abdomen and pelvis without contrast showed severe bilateral hydronephrosis, left worse than right representing obstructive uropathy. She had multiple new neoplastic tumor masses in the mid and the lower abdominal cavity, probably causing obstructive uropathy. She was evaluated by Urology. She underwent bilateral ureteral stent placement by Dr. Rincon on 28 of September. Her renal function gradually improved. Creatinine at discharge is 2.5 from 5.1 on admission. Her potassium at discharge is 3.8. The patient was also evaluated by Nephrology for acute kidney injury. For abdominal masses, the patient was evaluated by [employer]ITY [employer]OL ASSESSOR hospitalist as well as Oncology Service. Per Oncology, the patient will likely unable to tolerate any palliative chemotherapy due to kidney function and performance status. All these findings were discussed with the patient and the DPOA, Mr. Peyman Alfred. The patient was discharged to custodial facility. The patient will require wound VAC. Please note that the patient's mentation is gradually improving. She still not tolerating p.o. The family understands this and are hoping for the best. They are also aware that if her condition declines, then they will probably consider Hospice. I had extensive discussion with DANIELLE on the day of discharge in the patient's room. DISCHARGE MEDICATIONS: 1. Amlodipine 10 mg daily, once the patient starts taking p.o. 2. Ergocalciferol 1.25 mg daily. 3. Tylenol as needed. 4. TPN or IV fluids temporary until the patient is able to tolerate p.o. 5. Calcium Caltrate 600 D one tablet t.i.d. 6. Cefepime along with vancomycin until the patient is tolerating p.o. 7. Please change to Cipro and Flagyl adjusted for renal dose for 4 to 6 weeks. 8. Lopressor 12.5 mg b.i.d. 9. Florastor 250 mg at bedtime. 10. Fentanyl patch 12 mcg q.24 hours. FINAL DIAGNOSES: 1. Infected heel ulcer with suspected osteomyelitis. 2. Acute kidney injury on chronic kidney disease stage 3 due to obstructive uropathy. 3. Multiple electrolyte abnormalities including hypokalemia, hyperkalemia, and hypophosphatemia. 4. Metabolic acidosis due to renal failure. 5. Anemia probably due to renal insufficiency, status post 1 unit of PRBC. 6. Bilateral hydronephrosis, status post ureteral stent placement. 7. Multiple abdominal and pelvic masses. No workup per family. 8. Poor appetite. Family declined PEG tube. 9. Hypertension. 10. Hypomagnesemia. 11. Gastroesophageal reflux disease. 12. History of cervical cancer in the distant past. 13. Peripheral vascular disease. 14. Do not resuscitate. TIME SPENT: Time coordinating the discharge of this patient was 36 minutes. Job ID: [id number]
== END 2019-10-06 18:07 | DRG 659 ==
LOC: ERS 10:34 → 2NO 15:50 → T4-A 10-01 19:41
PROVIDERS: ADMIT Internal Medicine; ATTEND Internal Medicine
PROC: 0T788DZ Dilation of Bilateral Ureters with Intraluminal Device, Via Natural or Artificial Opening Endoscopic (ICD-10-PCS; principal; 2019-09-30)
PROC: BT141ZZ Fluoroscopy of Kidneys, Ureters and Bladder using Low Osmolar Contrast (ICD-10-PCS; 2019-09-30)
DX: N17.9 Acute kidney failure, unspecified (principal); E43 Unspecified severe protein-calorie malnutrition; G93.41 Metabolic encephalopathy; M86.8X7 Other osteomyelitis, ankle and foot; L97.419 Non-pressure chronic ulcer of right heel and midfoot with unspecified severity; E87.2 Acidosis; N25.81 Secondary hyperparathyroidism of renal origin; N13.6 Pyonephrosis; Z66 Do not resuscitate; C53.9 Malignant neoplasm of cervix uteri, unspecified; C80.1 Malignant (primary) neoplasm, unspecified; E87.6 Hypokalemia; I12.9 Hypertensive chronic kidney disease with stage 1 through stage 4 chronic kidney disease, or unspecified chronic kidney disease; R33.9 Retention of urine, unspecified; E86.9 Volume depletion, unspecified; I73.9 Peripheral vascular disease, unspecified; N13.9 Obstructive and reflux uropathy, unspecified; D63.1 Anemia in chronic kidney disease; K21.9 Gastro-esophageal reflux disease without esophagitis; R19.00 Intra-abdominal and pelvic swelling, mass and lump, unspecified site; N18.3 Chronic kidney disease, stage 3 (moderate); E83.42 Hypomagnesemia; E83.51 Hypocalcemia; Z90.710 Acquired absence of both cervix and uterus; Z90.49 Acquired absence of other specified parts of digestive tract; Z74.01 Bed confinement status
CPT/HCPCS: 36415; 36416; 36430; 36600; 51701; 70450; 71045; 74176; 74420; 76770; 80048; 80053; 80069; 80202; 81003; 82306; 82378; 82570; 82728; 83540; 83550; 83605; 83735; 83970; 84133; 84156; 84300; 85025; 85652; 86140; 86304; 86850; 86900; 86901; 87040; 87070; 87186; 87205; 93005; 93306; 93922; 93923; 93970; 94760; 96360; 96361; 96365; 96367; G0365; J0692; J1650; J2405; J2704; J3010; J3370; J3475; J3490; J7050; J7070; P9016; P9047; Q9967